=== PATIENT | male | born 1955 | race Caucasian/White ===

== ENCOUNTER → 2018-08-17 | Day surgery (SDC) | payer OTHER ==
[~2018-08-17] MED LIST: AMBIEN5 MG PO; BUPIVACAINE 0.25%/EPI 30ML SDV INJ ONE; CEFAZOLIN SOD 1 GM VIAL ONE; CENTRUM SILVER1 EAC3 PO; DEXAMETHASONE SOD PHOS INJ 4 MG/ML VIAL ONE; EPHEDRINE SULFATE INJ 50 MG/10 ML SYR ONE; FENTANYL CITRATE/PF 100MCG/2 ML INJ ONE; HEPARIN SOD (PORCINE) 5,000 UNIT/ML VIAL ONE; LIDOCAINE HCL 1% LOCAL INJ 20 ML VIAL ONE; LIDOCAINE HCL 2% LOCAL INJ 5 ML SDV VIAL INJ ONE; LOSARTAN POTASS25 MG PO; MIDAZOLAM HCL 2 MG/2 ML VIAL ONE; MORPHINE PO; NORCO 10-325 T1 EACH PO; ONDANSETRON HCL INJ 2MG/ML 2ML 2 MG/ML VIAL ONE; PROPOFOL IV EMULSION 10 MG/ML 20 ML VIAL ONE; SEVOFLURANE INHAL SOLN 250 ML PEN BTL ONE; SODIUM CHLORIDE 0.9% 500ML 500 ML ONE
[2018-08-17 09:59] LABS: BASOPHILS # (AUTO) 0.1 (0.0-0.1); EOSINOPHILS % 0.2 % (0.0-6.0); HEMATOCRIT 37.2 % (38.2-49.6); LYMPHOCYTES # (AUTO) 1.8 (1.0-3.2); LYMPHOCYTES % 17.6 % (18.0-39.1); MEAN CORPUSCULAR HGB CONC 32.3 g/dL (31-35); MEAN CORPUSCULAR VOLUME 86.7 fL (81-99); MONOCYTES # (AUTO) 0.8 (0.2-0.8); MONOCYTES % 7.9 % (4.4-11.3); NEUTROPHILS # (AUTO) 7.4 (2.1-6.9); NEUTROPHILS % 72.3 % (38.7-80.0); PLATELET COUNT 295 x10e3/uL (140-360); RED BLOOD COUNT 4.29 x10e6/uL (4.3-5.7); RED CELL DISTRIBUTION WIDTH 17.2 % (11.7-14.4)
[2018-08-17 10:15] LABS: ALBUMIN/GLOBULIN RATIO 1.1 (0.8-2.0); ANION GAP 16.9 mmol/L (8-16); CALCIUM 9.8 mg/dL (8.4-10.2); CREATININE, SERUM 1.53 mg/dL (0.72-1.25); POTASSIUM 3.9 mmol/L (3.5-5.1)
--- NOTE | 2018-08-17 10:47 | Diagnostic Imaging Report ---
EXAMINATION: CHEST 2 VIEWS INDICATION: Pre-operative. COMPARISON: None FINDINGS: TUBES and LINES: None. LUNGS: Lungs are well inflated. There is no evidence of pneumonia or pulmonary edema. There is a 5 mm nodular opacity overlying the left midlung. PLEURA: No pleural effusion or pneumothorax. HEART AND MEDIASTINUM: The cardiomediastinal silhouette is unremarkable. BONES AND SOFT TISSUES: No acute osseous abnormality. UPPER ABDOMEN: No free air under the diaphragm. IMPRESSION: No acute radiographic abnormality. Possible 5 mm pulmonary nodule in the left midlung. Recommend follow-up nonurgent chest CT for further evaluation. Signed by: Dr. Parish Rod MD on 08/17/2018 10:44 AM
[2018-08-17 13:45] VITALS: BP 121/86
--- NOTE | 2018-08-17 20:33 | Operative Report ---
DATE OF PROCEDURE: 08/17/2018 SURGEON: Dinesh Fagan MD PREOPERATIVE DIAGNOSIS: Prostate cancer, needing IV access for chemotherapy. POSTOPERATIVE DIAGNOSIS: Prostate cancer, needing IV access for chemotherapy. OPERATION PERFORMED: Placement of left subclavian venous access port under C-arm guidance. ANESTHESIA: General. COMPLICATIONS: None. ESTIMATED BLOOD LOSS: Minimal. DESCRIPTION OF PROCEDURE: With the patient lying in bed in the Trendelenburg position under good general anesthesia, the left chest and neck were prepped with Betadine solution and draped in the usual manner. Standard left subclavian venipuncture was performed without any difficulty and a guidewire was advanced into central venous position. The tip of the guidewire was confirmed to be at the level of the superior vena cava with the C-arm and the left lung was fully expanded. A pocket was then created in the left anterior chest to accept the reservoir. The catheter was threaded to the subclavian position and cut to the appropriate length. The reservoir was then anchored to the anterior chest wall with interrupted sutures of 2-0 silk. The whole catheter and reservoir were then fully heparinized. The peel-away sheath was then placed over the guidewire. The guidewire was removed and the catheter was threaded through the peel-away sheath. The peel-away sheath was removed. There was good blood return, and the reservoir and catheter were fully heparinized. Using the C-arm, the tip of the catheter was confirmed to be at the level of the superior vena cava and the left lung was fully expanded. The wounds were then closed in layers. The subcutaneous tissue was approximated with 3-0 and 4-0 Vicryl, and the skin was closed with subcuticular 5-0 Vicryl. Benzoin Steri-Strips and dressings were applied. The sponge, lap, and needle count was correct. The patient tolerated the procedure well and returned to the recovery room in stable condition. Dinesh Fagan MD JLR/MODL /[id number]
== END | disposition home or self-care (01) ==
LOC: OR 08:28
PROVIDERS: ATTEND Surgery
DX: C61 Malignant neoplasm of prostate (principal); I10 Essential (primary) hypertension; Z88.6 Allergy status to analgesic agent; Z45.2 Encounter for adjustment and management of vascular access device
CPT/HCPCS: 36415; 36561; 71046; 77001; 80053; 85025; 93005; C1751; J0690; J1100; J1644; J2001; J2250; J2405; J2704; J7040

== ENCOUNTER 2018-08-31 14:45 | Inpatient (IN) | payer OTHER ==
[~2018-08-31] VITALS: Ht 182.9 cm; Wt 99.4 kg
[~2018-08-31 14:45] MED LIST changes: -BUPIVACAINE 0.25%/EPI 30ML SDV INJ ONE; -CEFAZOLIN SOD 1 GM VIAL ONE; -DEXAMETHASONE SOD PHOS INJ 4 MG/ML VIAL ONE; -EPHEDRINE SULFATE INJ 50 MG/10 ML SYR ONE; -FENTANYL CITRATE/PF 100MCG/2 ML INJ ONE; -HEPARIN SOD (PORCINE) 5,000 UNIT/ML VIAL ONE; -LIDOCAINE HCL 1% LOCAL INJ 20 ML VIAL ONE; -LIDOCAINE HCL 2% LOCAL INJ 5 ML SDV VIAL INJ ONE; -MIDAZOLAM HCL 2 MG/2 ML VIAL ONE; -ONDANSETRON HCL INJ 2MG/ML 2ML 2 MG/ML VIAL ONE; -PROPOFOL IV EMULSION 10 MG/ML 20 ML VIAL ONE; -SEVOFLURANE INHAL SOLN 250 ML PEN BTL ONE; -SODIUM CHLORIDE 0.9% 500ML 500 ML ONE
--- OUTSIDE RECORDS SUMMARY | 2018-08-31 14:48 | XMS REPORT ---
Author Author [facility] Address Unknown Phone Unavailable Care Team Providers Care Loading Unit Operator Seating Name Role Phone Sari VELIZ Unavailable Unavailable Problems This patient has no known problems. Allergies, Adverse Reactions, Alerts This patient has no known allergies or adverse reactions. Medications This patient has no known medications. Results Test Description Test Time Test Comments Text Results Atomic Results Result Comments CHEST 2 VIEWS 2018-08-17 10:40:00 [facility] [address] [address] Patient Name: GORDON STRINGER MR #: [id number] : 1955 Age/Sex: 63/M Req #: [id number] Adm Physician: Ordered by: MADDIE VELIZ MD Report #: [id number] Location: OR Room/Bed: Procedure: [id number] DX/CHEST 2 VIEWS Exam Date: 08/17/18 Exam Time: 1000 REPORT STATUS: Signed EXAMINATION: CHEST 2 VIEWS INDICATION: Pre-operativ e. COMPARISON: None FINDINGS: TUBES and LINES: None. LUNGS: Lungs are well inflated. There is no evidence of pneumonia or pulmonary edema. There is a 5 mm nodular opacity overlying the left midlung. PLEURA: No pleural effusion or pneumothorax. HEART AND MEDIASTINUM: The cardiomediastinal silhouette is unremarkable. BONES AND SOFT TISSUES: No acute osseous abnormality. UPPER ABDOMEN: No free air under the diaphragm. IMPRESSION: No acute radiographic abnormality. Possible 5 mm pulmonary nodule in the left midlung. Recommend follow-up nonurgent chest CT for further evaluation. Signed by: Dr. Rk Salas MD on 08/17/2018 10:44 AM Dictated By: RK SALAS MD 1044 Transcribed By: NINO on 08/17/18 1044 COPY TO: MADDIE VELIZ MD
[2018-08-31] MEDS ORDERED: SODIUM CHLORIDE 0.9% 1000ML 1,000 ML IV STA (15:40)
[2018-08-31] MEDS ORDERED: HYDROMORPHONE 1MG/1ML INJ IV STA (15:40)
[2018-08-31] MEDS ORDERED: HYDROMORPHONE 2MG/ML 2 MG/ML ML IV ONE (15:45)
--- NOTE | 2018-08-31 16:00 | NUR ---
RECEIVED REPORT FROM THEODORA SAUNDERS RN, PT IN ER 5. GOWNED AND PLACED ON MONITOR. PT C/O DIFFUSE ABDOMINAL PAIN. DULL.
--- NOTE | 2018-08-31 16:19 | Diagnostic Imaging Report ---
EXAM: CHEST SINGLE (PORTABLE), AP Portable DATE: 08/31/2018 Time stamp on exam: 3:52 PM INDICATION: Abdominal pain with vomiting COMPARISON: 08/17/2018 FINDINGS: LINES/TUBES: Left-sided chest port with its tip overlying the SVC is noted. LUNGS: No consolidations or edema. Bilateral upper lobe bullous changes. PLEURA: No effusions or pneumothorax. HEART AND MEDIASTINUM: Normal size and contour. BONES AND SOFT TISSUES: No acute findings. IMPRESSION: No acute thoracic abnormality. Signed by: Dr. Wes Martinez DO on 08/31/2018 4:16 PM
[2018-08-31 17:16] LABS: BASOPHILS % 0.9 % (0.0-1.0); EOSINOPHILS % 0.5 % (0.0-6.0); HEMATOCRIT 33.2 % (38.2-49.6); HEMOGLOBIN 10.6 g/dL (14.0-18.0); LYMPHOCYTES # (AUTO) 1.1 (1.0-3.2); LYMPHOCYTES % 25.1 % (18.0-39.1); MEAN CORPUSCULAR HEMOGLOBIN 27.5 pg (28-32); MEAN CORPUSCULAR HGB CONC 31.9 g/dL (31-35); MONOCYTES # (AUTO) 0.2 (0.2-0.8); MONOCYTES % 3.7 % (4.4-11.3); PLATELET COUNT 237 x10e3/uL (140-360); RED BLOOD COUNT 3.86 x10e6/uL (4.3-5.7); RED CELL DISTRIBUTION WIDTH 15.4 % (11.7-14.4)
[2018-08-31 17:33] LABS: ALBUMIN 3.6 g/dL (3.5-5.0); ANION GAP 18.2 mmol/L (8-16); CALCIUM 9.5 mg/dL (8.4-10.2); CREATININE, SERUM 1.43 mg/dL (0.72-1.25); POTASSIUM 4.2 mmol/L (3.5-5.1)
[2018-08-31 17:39] LABS: CREATINE KINASE MB 0.3 ng/mL (0-5.0)
--- NOTE | 2018-08-31 18:38 | Diagnostic Imaging Report ---
EXAM: CT Abdomen and Pelvis WITH contrast INDICATION: Mid abdominal pain. Vomiting. ^abd pain. Tumors in the spine. Prostate cancer. COMPARISON: None. TECHNIQUE: Abdomen and pelvis were scanned utilizing a multidetector helical scanner from the lung base to the pubic symphysis after administration of IV contrast. Coronal and sagittal reformations were obtained. Routine protocol was performed. Scan was performed when during portal venous phase. IV CONTRAST: 150 mL of Omnipaque 300 ORAL CONTRAST: Water COMPLICATIONS: None RADIATION DOSE: Total DLP: 605.76 mGy*cm Estimated effective dose: (DLP x 0.015 x size factor) mSv CTDIvol has been reviewed. It is below the limits set by the Radiation Protocol Committee (RPC). Dose modulation, iterative reconstruction, and/or weight based adjustment of the mA/kV was utilized to reduce the radiation dose to as low as reasonably achievable. FINDINGS: LINES and TUBES: None. LOWER THORAX: There is bibasilar atelectasis. HEPATOBILIARY: The liver is diffuse hypodense compared to the spleen, consistent with diffuse hepatic diffuse hepatic steatosis. Multiple subcentimeters hypodensities throughout the entire liver. 1.2 cm simple appearing cyst in segment 2 of the liver (series 2, image 20). 1.0 cm ill-defined indeterminate hypodensity in segment 5 of the liver (image 30). No biliary ductal dilation. GALLBLADDER: No radio-opaque stones or sludge. No wall thickening. SPLEEN: No splenomegaly. PANCREAS: No focal masses or ductal dilatation. ADRENALS: No adrenal nodules KIDNEYS/URETERS: Delayed enhancement of the left kidney. Left hydronephrosis with delayed left renal function compared to the right kidney secondary to obstruction by lymphoid tissue. No cystic or solid mass lesions. No stones. GI TRACT: No abnormal distention, wall thickening, or evidence of bowel obstruction. Appendix is normal. PELVIC ORGANS/BLADDER: Prostate measures 4.6 cm in transverse dimension. Mild lobulation of the right aspect. No periprostatic extension of tumor. LYMPH NODES: * Extensive retroperitoneal mesenteric lymphadenopathy, more mesenteric lymphadenopathy. * Conglomeration of mesenteric lymphadenopathy measures 7.0 x 11.3 cm (series 2, image 40). * Multiple prosper hepatis lymph nodes measure up to 2.1 x 4.6 cm (image 33). * Multiple other retroperitoneal lymph nodes. 1.8 cm aortocaval lymph node (image 43). * 1.2 cm right common iliac lymph node (image 72). * 0.6 cm left anterior and 0.8 cm posterior perirectal lymph nodes (image 94). Ill-defined lymph node in the left retroperitoneum extending into the left renal sinus fat causing obstruction of the left renal pelvis. VESSELS: Unremarkable. PERITONEUM / RETROPERITONEUM: No free air or fluid. BONES: Extensive blastic metastases especially involving S1 and S2. SOFT TISSUES: Unremarkable. IMPRESSION: 1. Extensive retroperitoneal and mesenteric lymphadenopathy. 2. Lymphadenopathy in the left retroperitoneum extending to the left renal sinus fat causing obstruction and left hydronephrosis. 3. Multiple indeterminate liver lesions. Several of which are benign. Signed by: Dr. Sonny Kovacs M.D. on 08/31/2018 6:35 PM
[2018-08-31 18:51] LABS: BILIRUBIN,URINE NEGATIVE (NEGATIVE); CLARITY,URINE CLEAR (CLEAR); COLOR,URINE YELLOW (YELLOW); KETONES,URINE NEGATIVE (NEGATIVE); LEUKOCYTE ESTERASE ,URINE NEGATIVE (NEGATIVE); NITRITE,URINE NEGATIVE (NEGATIVE); PROTEIN,URINE DIPSTICK NEGATIVE (NEGATIVE); URINE UROBILINOGEN 0.2 mg/dL (0.2 - 1)
[2018-08-31] MEDS ORDERED: HYDROMORPHONE 1MG/1ML INJ IV PRN (19:00)
--- NOTE | 2018-08-31 19:00 | NUR ---
PT STATES PAIN BACK UP TO WHERE IT STARTED. ABOUT A 5. SAYS AFTER THE DILAUDID PAIN WENT DOWN TO ABOUT A 3 FOR A LITTLE WHILE BUT HAS SINCE CLIMBED BACK UP
[2018-08-31 19:13] LABS: BACTERIA,URINE MODERATE /HPF; EPITHELIAL CELLS,URINE FEW /LPF; WBC,URINE (MAN) 0-5 /HPF (0-5)
--- NOTE | 2018-08-31 19:51 | NUR ---
recieved report from hermilo escobar
--- NOTE | 2018-08-31 19:52 | NUR ---
patient reports no problems urinating
[2018-08-31] MEDS ORDERED: IOPAMIDOL 370 MG/ML 200 ML INFUS..BTL INJ ONE (20:10)
[2018-08-31] MEDS ORDERED: SODIUM CHLORIDE 0.9% 50ML 50 ML ONE (20:10)
[2018-08-31 21:07] VITALS: BP 147/92
[2018-08-31 21:16] VITALS: BP 147/92
[2018-08-31 21:27] VITALS: BP 147/92
[2018-08-31] MEDS: HYDROMORPHONE 2MG/ML 2 MG/ML ML IV PRN (21:43)
[2018-09-01] VITALS (8 sets, daily range): BP systolic 126–132; BP diastolic 76–91
[2018-09-01] MEDS: HYDROMORPHONE 2MG/ML 2 MG/ML ML IV PRN ×4 (03:53→18:43)
[2018-09-01 05:34] LABS: BASOPHILS % 0.9 % (0.0-1.0); EOSINOPHILS % 0.3 % (0.0-6.0); HEMATOCRIT 29.6 % (38.2-49.6); HEMOGLOBIN 9.6 g/dL (14.0-18.0); LYMPHOCYTES % 31.5 % (18.0-39.1); MEAN CORPUSCULAR HEMOGLOBIN 27.8 pg (28-32); MEAN CORPUSCULAR HGB CONC 32.4 g/dL (31-35); MEAN CORPUSCULAR VOLUME 85.8 fL (81-99); MONOCYTES # (AUTO) 0.2 (0.2-0.8); MONOCYTES % 5.2 % (4.4-11.3); NEUTROPHILS % 60.9 % (38.7-80.0); PLATELET COUNT 179 x10e3/uL (140-360); RED BLOOD COUNT 3.45 x10e6/uL (4.3-5.7); RED CELL DISTRIBUTION WIDTH 15.3 % (11.7-14.4)
[2018-09-01 05:53] LABS: ALBUMIN 3.1 g/dL (3.5-5.0); CALCIUM 8.7 mg/dL (8.4-10.2); CREATININE, SERUM 1.27 mg/dL (0.72-1.25)
[2018-09-01] MEDS ORDERED: FENTANYL 75MCG/HR PATCH TD SCH (09:45)
--- NOTE | 2018-09-01 12:14 | NUR ---
Notified Dr. Richy Johnson, IR consult for retroperitoneal lymphnoid biopsy to be done 09/02/18 received orders for NPO after MN, PT/INR, PTT, in am.
--- NOTE | 2018-09-01 14:27 | NUR ---
Notified Dr. Mandel that I made IR aware about patient's urological procedure scheduled for 12:[address] Mandel. Asked IR what time was patient's retroperitoneal lymphnode biopsy scheduled for spoke with Franchesca in IR and she informed me it was scheduled for 08:30 in the morning, and pathology for 09:00.
[2018-09-01] MEDS: MORPHINE SULFATE 30 MG TAB ER PO SCH (15:02)
--- NOTE | 2018-09-01 15:59 | NUR ---
Removed Fentanyl 75mcg patch from patient at his request reported patch not relieving his pain. Became nauseated vomited in bathroom.
--- NOTE | 2018-09-01 16:06 | NUR ---
Fentanyl 75mcg wasted nurse Anahi witnessed waste.
[2018-09-01] MEDS: ONDANSETRON HCL INJ 2MG/ML 2ML 2 MG/ML VIAL IV PRN (16:08)
--- NOTE | 2018-09-01 18:45 | NUR ---
Received bedside report from day shift RN. Patient is not in distress except for abdominal pain which will receiving PO pain medication. Patient understood to be NPO by midnight for two procedures. Bed set low, call light within reach, wheels lock and side rails up x2.
[2018-09-02] VITALS (7 sets, daily range): BP systolic 117–124; BP diastolic 76–85
[2018-09-02] MEDS: MORPHINE SULFATE 30 MG TAB ER PO SCH ×2 (02:05→17:59)
[2018-09-02] MEDS: ONDANSETRON HCL INJ 2MG/ML 2ML 2 MG/ML VIAL IV PRN (02:06)
--- NOTE | 2018-09-02 02:06 | NUR ---
The patient requiest the MsContin to help manage the pain throughout the evening till the procedure in the morning. The patient requested Zofran to help prevent the nausea. Both medications administered.
--- NOTE | 2018-09-02 06:27 | NUR ---
Patient took a shower to prepare for today's procedures. Patient report mild pain and did not ask for pain medication.
[2018-09-02 06:48] LABS: INR 1.02; PARTIAL THROMBOPLASTIN TIME 34.2 seconds (23.8-35.5); PROTHROMBIN TIME 13.9 seconds (11.9-14.5)
--- NOTE | 2018-09-02 07:30 | NUR ---
RECEIVED PATIENT AWAKE RESTING IN BED NO SIGNS OF DISTRESS. BED LOW, WHEELS LOCKED, SIDE RAILS X2. CALL LIGHT IN REACH WILL CONTINUE TO MONITOR.
[2018-09-02] MEDS ORDERED: MIDAZOLAM HCL 2 MG/2 ML VIAL ONE ×2 (08:52→19:35)
[2018-09-02] MEDS ORDERED: FENTANYL CITRATE/PF 100MCG/2 ML INJ ONE ×3 (08:53→19:35)
[2018-09-02] MEDS ORDERED: LIDOCAINE HCL 1% LOCAL INJ 20 ML VIAL ONE (09:29)
[2018-09-02] MEDS ORDERED: GELATIN SPONGE 12-7MM ONE (09:29)
--- NOTE | 2018-09-02 10:52 | NUR ---
PATIENT BACK FROM RADIOLOGY AT THIS TIME. RIGHT BACK PUNCTURE SITE DRESSING CLEAN, DRY, AND INTACT. NO PAIN VOICED AT THIS TIME. CALL LIGHT IN REACH. WILL CONTINUE TO MONITOR.
--- NOTE | 2018-09-02 11:19 | Diagnostic Imaging Report ---
EXAM: CT guided retroperitoneal lymph node biopsy. DATE: 09/02/2018 Time stamp on Exam: 9:10 AM INDICATION: History of prostate cancer; now presents with extensive mesenteric and retroperitoneal lymphadenopathy. COMPARISON: 08/31/2018 TECHNIQUE: The abdomen and pelvis were scanned using a multidetector helical scanner. Coronal and sagittal reformations were obtained. Routine protocol performed. IV Contrast: None Oral Contrast: None Radiation Dose: Total DLP 699.36 mGy*cm Estimated effective dose: DLP x 0.015 x size factor CONSCIOUS SEDATION: The patient did receive IV conscious sedation with 1 mg of Versed and 50 mcg of fentanyl. He was continuously monitored by the dedicated nurse in attendance. Sedation time was 1 hour and 30 minutes. FINDINGS: Initial scanning in the supine position to evaluate the mesenteric lymphadenopathy was performed. There were some loops of bowel present as well as the mesenteric lymphadenopathy. It was elected to perform the biopsy in the prone position targeting the retroperitoneal lymphadenopathy adjacent to the left kidney. Local anesthesia was obtained with 1% Xylocaine. CT guidance for placement of a 19-gauge guiding needle into the retroperitoneal lymphadenopathy noted medial to the left kidney was accomplished. Through the guiding needle 3 FNA's were performed utilizing 20-gauge Chiba needles. A total of 6 core biopsies were also performed utilizing 1 cm and 2 cm throw 20-gauge core biopsy guns. Specimens were evaluated by the Pathologist in attendance who deemed the specimens adequate. Postbiopsy imaging through the kidneys shows no evidence of hemorrhage. IMPRESSION: CT-guided FNA and core biopsy of left retroperitoneal lymphadenopathy. Signed by: Dr. Wes Martinez DO on 09/02/2018 11:16 AM
[2018-09-02] MEDS ORDERED: B&O 60MG R/S 60 MG SUPP PR ONE (12:32)
[2018-09-02] MEDS ORDERED: IOPAMIDOL 610MG/1ML 300 MG/ML VIAL IV ONE ×2 (12:32→13:20)
[2018-09-02] MEDS ORDERED: MEPERIDINE HCL INJ 25 MG/ML VIAL ONE ×3 (14:08→14:24)
[2018-09-02] MEDS ORDERED: HYDROMORPHONE 2MG/ML 2 MG/ML ML ONE ×2 (15:38→15:56)
--- NOTE | 2018-09-02 15:41 | Diagnostic Imaging Report ---
Exam: Retrograde ureterogram. History: Patient with a history of prostate cancer and retroperitoneal adenopathy causing left hydronephrosis. Comparison: CT scan of the abdomen and pelvis dated 08/31/2018 Findings: Multiple images were obtained and scored to the medical record. Injection of both ureters has been performed. Right side appears normal. Moderate left hydronephrosis is present. A double-J ureteral stent was placed on the left after ureteral dilatation. There is a proximal left irregular ureteral stricture. Fluoroscopy time: 58 seconds Cumulative area dose product 693.68 cGycm2 Impression: 1. Moderate left hydronephrosis and proximal ureteral stricture. 2. Left double-J ureteral stent placed. 3. Please see the full report provided by the performing Physician. Signed by: Dr. Wes Martinez DO on 09/02/2018 3:37 PM
[2018-09-02] MEDS ORDERED: NALOXONE HCL INJ 0.4 MG/ML AMP IV PRN ×2 (15:45→16:00)
[2018-09-02] MEDS ORDERED: HYDROMORPHONE 0.2MG/ML-SOD CHL 30ML PCA SYRINGE IV PRN ×2 (15:45→16:00)
--- NOTE | 2018-09-02 15:53 | Diagnostic Imaging Report ---
Abdomen, 2 views dated 09/02/2016 at 3:29 PM. History: <Abdominal pain>. Findings: There is a left double-J ureteral stent in appropriate location. No free peritoneal air is identified. Contrast residual within the left kidney is noted. Minimal amount of subcapsular contrast in the left upper pole lateral cortical margin is noted. The intestinal gas pattern is nonobstructive. There no masses or abnormal calcifications. Sclerotic densities are seen in the left sacrum near the SI joint, midline sacrum and the right iliac wing compatible with osteoblastic metastasis. IMPRESSION: 1. Double-J left ureteral stent appropriate in position. 2. Minimal subcapsular contrast in the upper lateral pole of the left kidney. 3. Diffuse osteoblastic metastasis. Signed by: Dr. Wes Martinez DO on 09/02/2018 3:49 PM
--- NOTE | 2018-09-02 15:57 | Operative Report ---
DATE OF PROCEDURE: 09/02/2018 SURGEON: Paolo Mandel MD PREOPERATIVE DIAGNOSIS: Retroperitoneal mass with left hydronephrosis. 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 PROCEDURES: Cystoscopy, retrograde pyelograms, dilatation of ureteral stenosis and placement of left double-J. ANESTHESIOLOGIST: Staff. ANESTHESIA: General. FINDINGS: Urethral meatal stenosis. Small prostate. Bladder, no trabeculation. Ureteral orifices, normal position bilaterally. High-riding median bar noted, but the prostate was small, nonobstructed. PROCEDURE IN DETAIL: With the patient under satisfactory general anesthesia, the patient was placed in supine position on the operating table, legs were placed in stirrup, genitalia was then prepped with Betadine soap and solution and draped in the usual manner. A time-out was obtained and all agreed with the patient on the table and procedure as outlined. First order of business was to dilate the urethral meatus since it was tight. This was done to size a 24 Bassam sound. After that, the cystoscope was passed per urethra into the bladder. Inspection of the prostatic urethra showed a short prostate fixed with a high-riding median bar. Cystoscopy was done with a 12 and 70 degree angle lens. There was no evidence of trabeculation in the bladder. Ureteral orifices were in the normal position. At this point, using a #8 cone-tip ureteral catheter, contrast media was injected retrograde up the right and the left side. On the right side, the ureter appeared to be normal as well as a calyx and infundibulum and renal pelvis. On the left side, the ureter appeared to be narrow, it appeared also to have ureteritis cystica, the renal pelvis was dilated as well as the infundibulum and calyx is on the left side suggesting external compression. The extra stiff guidewire was then introduced all the way up to the kidney without any difficulty. Difficulty came in placing the double-J, which would not advance. The double-J was then removed and over the guidewire, the open-ended catheter was placed in. Again, difficulty was noted accessing the renal pelvis. There was approximately an 8 mm section of proximal ureter that was very tight. This was from the external compression caused by lymphadenopathy seen on CT scan, which was biopsied earlier today. At this point, a balloon dilator was introduced. Difficulty was found advancing the balloon with the tip in the inside the renal pelvis. This was a 10 cm balloon. Inflation was down to 14 atmospheres pressure and then up to 16 atmospheres pressure. At this point, the balloon was removed and a 6-Welsh [employer] double-J was introduced with some difficulty up into renal pelvis. Coil in the renal pelvis. Then, the guidewire was removed and it was coiled in the bladder. Contrast media was injected retrograde, no extravasation was identified. At this point, the sleeve was used to disengage the pusher and leave the double-J in place. Cystoscopy was performed. Bleeding was noted from the right side of the bladder neck. Since the bladder neck was fixed and hard, this area was fulgurated using the Bugbee electrode. At that point looking inside the bladder, it was noted that the double-J was in appropriate position, but blood was noted around the urethral meatus. Therefore, the patient will have blood in the ureter. If this coagulates, the patient will have pain as if he had a kidney stone for the next 3-4 days until the clot will dissolve. At this point, B and O suppository was placed in the rectum. The patient was taken to recovery room in satisfactory condition. An 18-Welsh Quach catheter was passed per urethra and left indwelling. MD ROOPA Levine/MODL /[id number]
[2018-09-02] MEDS ORDERED: METOCLOPRAMIDE HCL 10 MG/2ML VIAL ONE (16:11)
[2018-09-02] MEDS ORDERED: ONDANSETRON HCL INJ 2MG/ML 2ML 2 MG/ML VIAL ONE ×2 (16:11→18:36)
[2018-09-02] MEDS ORDERED: PROMETHAZINE HCL (IM) 25 MG/ML VIAL ONE (16:18)
--- NOTE | 2018-09-02 16:34 | Diagnostic Imaging Report ---
Bone Scan, delayed phase INDICATION: Prostate cancer diagnosed in 2016 COMPARISON: No prior bone scan; CT abdomen/pelvis 08/31/2018 REPORT: Approximately 2 hours following intravenous administration of 26 mCi of Tc-99m MDP, delayed total body images in the anterior and posterior projections and selected spot images were obtained. Discrete foci of increased tracer activity are seen in the base of the left skull posteriorly, T8, T9, L2, multiple ribs anteriorly and posteriorly, manubrium on the right, sacrum bilaterally, clarissa bilaterally, right humeral neck and head, left humeral shaft proximally and right femoral neck. Otherwise, distribution of tracer activity is unremarkable throughout the skeletal system. No abnormal accumulation of tracer is seen in the soft tissues or urinary tract. 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 Signed by: Dr. Savannah Corado M.D. on 09/02/2018 4:30 PM
[2018-09-02] MEDS ORDERED: SODIUM CHLORIDE 0.9% 500ML 500 ML ONE (18:10)
[2018-09-02] MEDS ORDERED: PROPOFOL IV EMULSION 10 MG/ML 20 ML VIAL ONE (18:36)
[2018-09-02] MEDS ORDERED: SEVOFLURANE INHAL SOLN 250 ML PEN BTL ONE (18:36)
[2018-09-02] MEDS ORDERED: LIDOCAINE HCL 2% LOCAL INJ 5 ML SDV VIAL INJ ONE (18:36)
[2018-09-02] MEDS ORDERED: DEXAMETHASONE SOD PHOS INJ 4 MG/ML VIAL ONE (18:36)
[2018-09-03] VITALS (8 sets, daily range): BP systolic 117–134; BP diastolic 75–94
[2018-09-03] MEDS: MORPHINE SULFATE 30 MG TAB ER PO SCH ×2 (05:19→17:26)
--- NOTE | 2018-09-03 07:36 | NUR ---
RECEIVED PATIENT AWAKE RESTING IN BED NO SIGNS OF DISTRESS AT THIS TIME. BED LOW, WHEELS LOCKED, SIDE RAILS X2. CALL LIGHT IN REACH WILL CONTINUE TO MONITOR PATIENT.
[2018-09-03] MEDS: PREDNISONE 20 MG TAB PO SCH (07:55)
--- NOTE | 2018-09-03 09:15 | NUR ---
PATIENT A/O X3, EVEN RESPIRATIONS ON RA. LUNG SOUNDS CLEAR TO AUSCULTATION. BOWEL SOUNDS ACTIVE, SKIN INTACT, NO EDEMA. ROSSI IN PLACE DRAINING DARK BLOODY URINE. PATIENT AMBULATES WITH STANDBY ASSIST. VITAL SIGNS STABLE. PLAN COORDINATOR DILAUDID IN PLACE. CALL LIGHT IN REACH. WILL CONTINUE TO MONITOR PATIENT.
--- NOTE | 2018-09-03 10:25 | NUR ---
MD. Amaury SIMMONS ROUNDED. ORDERS TO DC ROSSI AND LOSS PREVENTION AGENT TOMORROW MORNING GIVEN(09/04/18) ORDERS NOW ON COMP.
--- NOTE | 2018-09-03 16:22 | NUR ---
Nutrition Intervention Note RD Recommendation(s) for Physician: -Continue diet as ordered -The patient meets criteria for MODERATE protein-calorie malnutrition. Plan of Care: RD following, monitoring for tolerance and adequacy Nutrition reason for involvement: Nutrition Risk Trigger RD Assessment 09/03 63yo M, who was admitted for hydronephrosis. Visited pt in the room. Pt reported good appetite with 100% recorded meal intake. No complains of nausea or vomiting. Pt denied any chewing or swallowing difficulty. Pt has been undergoing chemotherapy for prostate cancer since 2016. He has lost ~25lbs in the last 6 months from the treatment. No muscle/ fat loss observed upon NFPA. Pt is not interested in any oral nutrition supplements or diet education at this time. Current diet is adequate and appropriate. Discussed menu options with pt. Will continue to monitor and follow. Principal Problems/Diagnoses: hydronephrosis PMH: prostate cancer GI: abdomen soft, non-tender, round, flatus present Skin: no pressure wound noted Labs: reviewed Meds: prednisone Ht: 72in Wt: 217.02lb BMI: 29.4kg/m2 IBW: 196lbs Malnutrition Evaluation (09/03/2018) The patient meets criteria for MODERATE protein-calorie malnutrition. Energy intake: <75% of estimated energy requirements for >3 months Weight loss: >10% in 6 months (Chronic) Fat loss: None Muscle loss: None Supporting Evidence: Fluid accumulation: None Functional Status: no changes Nutrition Prescription (Diet Order): regular diet Estimated Nutritional Needs: Calories: 2450 2940kcal(25-30kcal/kg/d) Weight used: CBW Protein: 98 147g (1-1.5g/kg/d) Weight used: CBW Diet Adequacy: Meeting calorie needs, Meeting protein needs Diet Education Needs Assessment: Diet education not indicated; patient on regular diet. Nutrition Care Level: moderate Nutrition Diagnosis: Moderate malnutrition related to inadequate oral intake as evidenced by <75% of estimated energy requirements for >3 months and >10% weight loss in 6 months. Goal: Patient will meet 75-100% of estimated needs by follow up Progress: Goal Met Interventions: General healthful diet Monitoring/Evaluation: Total energy intake, Total protein intake, Diet, Weight change Signed: Sanam Simpson, MS, RD, LD
[2018-09-03] MEDS ORDERED: SODIUM CHLORIDE 0.9% 500ML 500 ML ONE (16:57)
--- NOTE | 2018-09-03 17:30 | NUR ---
RIGHT AC IV OCCLUDED. REMOVED IV, CATHETER TIP INTACT AND PRESSURE DRESSING APPLIED. NEW IV STARTED TO RIGHT FA 20 GAUGE.
[2018-09-04] VITALS (8 sets, daily range): BP systolic 113–121; BP diastolic 73–79
--- NOTE | 2018-09-04 05:48 | NUR ---
Bloody urine noted. Dr. Mandel notified and ordered not to removed Quach Catheter at this time.
--- NOTE | 2018-09-04 05:49 | NUR ---
Dr. Mandel ordered not to d/c CONSUMER BANKER at this time.
[2018-09-04] MEDS: MORPHINE SULFATE 30 MG TAB ER PO SCH ×2 (06:00→17:10)
--- NOTE | 2018-09-04 06:50 | NUR ---
Dr. Mandel seen the patient, ordered to removed Quach catheter and d/c WHEEL BORER.
--- NOTE | 2018-09-04 07:00 | NUR ---
bedside shift report received from night rn, pt in stable condition, ivf infusing to r fa 20g no ss of infiltration noted, rn recruitment pump on demand, denies pain at this time, hoffman to bsd with jason urine noted, no clots visible, call light in reach will continue to monitor
--- NOTE | 2018-09-04 07:06 | Progress Note ---
DATE: 09/04/2018 Today, the patient is doing well. Urine color migue. The little clots from the kidney and the ureter are now being dissolved by the urine, therefore, the urine is migue color, but there are no clots. The patient's pain has been under control. We will also remove the EDUCATION REPORTER pump today. Presently, the recommendations are that the patient can go home depending on Dr. Begum. The patient can be followed in the office if necessary. He is a known cancer patient with metastases and Dr. Begum will form a new treatment schedule for him once the pathology report is known from his retroperitoneal biopsy mass. MD ROOPA Levine/MODL /[id number]
--- NOTE | 2018-09-04 08:40 | NUR ---
hoffman dc'd as per ordered,bulb deflated hoffman removed, tip intact, 300cc of yellow urine emptied from bag, pt dtv [phone]
[2018-09-04] MEDS: PREDNISONE 20 MG TAB PO SCH (08:43)
--- NOTE | 2018-09-04 09:00 | NUR ---
pt voided bloody urine, no clots noted
[2018-09-04] MEDS ORDERED: HYDROCODONE/APAP 10MG-325MG TAB PO PRN (13:30)
--- NOTE | 2018-09-04 19:00 | NUR ---
RECEIVED PATIENT IN BEDSIDE REPORT. PATIENT RESTING IN BED AT THIS TIME. PAIN REPORTED 2/10. NO S&S OF DISTRESS NOTED. ROSSI DRAINING WELL. BED LOCKED IN LOWEST POSITION, SIDE RAILS UPX2, CALL LIGHT IN REACH.
[2018-09-05] VITALS (9 sets, daily range): BP systolic 117–144; BP diastolic 72–88
[2018-09-05] MEDS: MORPHINE SULFATE 30 MG TAB ER PO SCH ×2 (05:59→18:17)
--- NOTE | 2018-09-05 07:00 | NUR ---
BEDSIDE SHIFT REPORT RECEIVED FROM NIGHT NURSE, PT IN STABLE CONDITION, DARK RED URINE NOTED, WITH SMALL CLOT IN URINAL, R FA 20G NO SS OF INFILTRATION NOTED DENIES PAIN AT THIS TIME, CALL LIGHT IN REACH WILL CONTINUE OT MONITOR
[2018-09-05] MEDS: PREDNISONE 20 MG TAB PO SCH (08:47)
--- NOTE | 2018-09-05 08:59 | NUR ---
PAGED DR SIMMONS RE: PTS CONCERNS OF URINE COLOR AWAITING CALL BACK
--- NOTE | 2018-09-05 10:52 | Progress Note ---
DATE: 09/05/2018 Today, the patient is afebrile. Vital signs are stable, but he is depressed. He has had some pain on the left flank from the indwelling double-J and the clot form at the time of the procedure is dissolving. The pain is less, but still there is some present. His CBC stable as well as the chemistry. I have spoken with the patient concerning the possibility that this may be a progression of his prostatic cancer, if it is so the prognosis is very poor. The patient understands that. We will know the pathology report next week. Dr. Pettitishi to continue the care of the patient as best as possible given the circumstances now that his disease progression. The patient prognosis is very poor. MD RABIA LevineG/MODL /[id number]
--- NOTE | 2018-09-05 19:00 | NUR ---
RECEIVED PATIENT IN BEDSIDE REPORT. PATIENT REPORTS PAIN IS LESS THAN 2 AT THIS TIME. REMINDED PATIENT TO DRINK WATER AND AMBULATE. BED LOCKED IN LOWEST POSITION, SIDE RAILS UPX2, CALL LIGHT IN REACH.
[2018-09-06] VITALS (7 sets, daily range): BP systolic 115–134; BP diastolic 73–98
[2018-09-06] MEDS: HYDROMORPHONE HCL 2 MG TAB PO PRN ×2 (03:01→13:55)
--- NOTE | 2018-09-06 03:42 | NUR ---
REASSESSED PATIENT'S PAIN AND TOLERANCE OF NEW DILAUDID PO MEDICATION. PATIENT STATED PAIN WENT DOWN TO 2/10. STATED HE FELT A LITTLE STOMACH UPSET, BUT NOT ENOUGH TO TAKE ANY ANTI-NAUSEA MEDICATION, WILL NOTIFY STAFF IF IT GETS WORSE. PATIENT IS PLAYING A GAME ON HIS TABLET SO HE CAN PAY ATTENTION TO HOW HIS BODY REACTS TO DILAUDID AND DOES NOT NOTE ANY ADVERSE EFFECTS, BEYOND THE NAUSEA. WILL CONTINUE TO MONITOR.
[2018-09-06] MEDS: ONDANSETRON HCL 4 MG ORAL DISINTEGRATING TAB PO PRN ×2 (05:59→13:55)
[2018-09-06] MEDS: MORPHINE SULFATE 30 MG TAB ER PO SCH ×2 (05:59→16:29)
[2018-09-06] MEDS: PREDNISONE 20 MG TAB PO SCH (07:58)
[2018-09-06] MEDS: LACTULOSE SYRUP 20 GM/30 ML UDC PO SCH (07:58)
--- NOTE | 2018-09-06 18:51 | NUR ---
Resting in bed, side rails upx2, call light within reach. AAOX3 to time, person,place. Respirations even and unlabored. no s/s of acute distress noted.
--- NOTE | 2018-09-06 18:54 | NUR ---
Report given to oncoming nurse of patient's status.
--- NOTE | 2018-09-06 19:26 | NUR ---
Bedside report and walking rounds complete. Pt resting in bed and in no apparent distress. Room air, no tele. All safety measures ensured and pt call rivera near. Pt encouraged to use call rivera for assistance.
[2018-09-07 00:09] VITALS: BP 134/82
[2018-09-07] MEDS: HYDROMORPHONE HCL 2 MG TAB PO PRN (02:24)
[2018-09-07] MEDS: ONDANSETRON HCL 4 MG ORAL DISINTEGRATING TAB PO PRN (02:24)
[2018-09-07 04:58] VITALS: BP 122/82
[2018-09-07] MEDS ORDERED: MORPHINE SULFATE 30 MG TAB ER PO SCH (06:18)
--- NOTE | 2018-09-07 07:12 | NUR ---
received pt lying in bed with light on, Resp even and unlabored. denies pain at this time. call light within reach. be din low and locked position.
--- NOTE | 2018-09-07 07:30 | NUR ---
Bedside report and walking rounds complete.
[2018-09-07 08:12] VITALS: BP 124/84
[2018-09-07] MEDS: PREDNISONE 20 MG TAB PO SCH (08:19)
[2018-09-07] MEDS: LACTULOSE SYRUP 20 GM/30 ML UDC PO SCH (08:19)
[2018-09-07 09:04] VITALS: BP 124/84
[2018-09-07] MEDS ORDERED: DILAUDID2 MG PO (09:41)
[2018-09-07] MEDS ORDERED: LACTULOSE20 GM/30 M PO (09:42)
[2018-09-07] MEDS ORDERED: PREDNISONE20 MG PO (09:42)
--- NOTE | 2018-09-07 10:25 | NUR ---
PIV REMOVED WITH TIP INTACT. PATIENT D/C VIA WHEELCHAIR, ESCORTED TO FRONT LOBBY DOOR WHERE EX-MOTHER IN LAW AWAITED IN PRIVATE AUTO. ALL PERSONAL BELONGINGS, RX AND D/C INSTRUCTIONS IN HAND AT TIME OF D/C.
--- NOTE | 2018-09-07 15:01 | History and Physical ---
HISTORY OF PRESENT ILLNESS: Thomas Goodson is a 63-year-old white male, who presented with abdominal pain, subsequently admitted for further evaluation and treatment. HISTORY OF PAST ILLNESS: History of cancer of the prostate, which I have treated for approximately 6 years. SOCIAL HISTORY: Noncontributory. FAMILY HISTORY: Noncontributory. ALLERGIES: REPORTED NONE. MEDICATIONS: At this time consist of, 1. Ondansetron. 2. Hydromorphone. 3. MS Contin. REVIEW OF SYSTEMS: HEENT: Normal. CARDIAC: Normal. RESPIRATORY: Normal. GI: Normal except for abdominal pain now. : Cancer of the prostate, stage D2 with massive bony metastases, treated with Lupron Depot, later with Zytiga, later with systemic chemotherapy consisting of Taxotere, lateral with second-line chemotherapy, now getting third-line chemotherapy consisting of mitoxantrone and prednisone. MUSCULOSKELETAL: Massive metastases to the bone. PHYSICAL EXAMINATION: GENERAL: A moderately built male, in distress with pain. NECK: No palpable adenopathy. HEART: Within normal limits. LUNGS: Clear. ABDOMEN: Obese. RECTAL: Deferred. CENTRAL NERVOUS SYSTEM: Essentially normal. EXTREMITIES: Essentially normal. IMPRESSION: Metastatic cancer of the prostate. PLAN: To have a thorough workup for the abdominal pain, analgesics, Urology consultation. MD KENZIE Shah/NAVEENL /[id number]
--- NOTE | 2018-09-08 05:56 | Discharge Summary ---
HOSPITAL COURSE: Mr. Goodson is a 63-year-old white male, who presented with abdominal pain. On admission, hemoglobin 9.6, hematocrit 29.6, white count of 2300, and platelets 179,000. BUN 14, creatinine 1.27, sodium 139, potassium 4.0, chloride 74, CO2 of 24, bilirubin 0.5, SGOT 26, SGPT 15, and alkaline phosphatase 97. The patient had a CAT scan of the abdomen which showed massive retroperitoneal adenopathy. There was also left hydronephrosis. Subsequently, the patient had a biopsy of one of the regional lymph nodes. The lymph nodes were up to the prosper hepaticus. Consultation with the urologist, Dr. Paolo Mandel was obtained. The patient had stenting which caused a lot of bleed. The patient's pain was controlled with MS Contin 60 mg twice a day. The PSA was reported at 318.5. Bone scan showed massive metastases. Subsequently, the bleeding in the urethra was stopped. The Quach catheter was taken out. The patient could not tolerate the short-acting drug, Kiana 10/325. Subsequently, Dilaudid 4 mg q.6 hours p.o. was given. The patient was subsequently being discharged today comfortably on; DISCHARGE MEDICATIONS: 1. MS Contin 60 mg twice a day. 2. Dilaudid 4 mg q.6 hours p.r.n. 3. Prednisone 20 mg a day. The patient will continue to receive the prednisone and systemic chemotherapy as an outpatient. Prognosis remains guarded. I am awaiting the results of the biopsy of the regional lymph node. MD KENZIE Shah/NABILA /[id number]
--- NOTE | 2018-09-22 13:47 | Consultation ---
DATE OF CONSULTATION: 08/31/2018 REASON FOR CONSULTATION: Left hydronephrosis, severe. HISTORY: This is a 63-year-old male who was admitted to the[facility]ital with pain, progression of his disease. The patient was originally seen in my office in 2016 with a PSA of over 100. At that time, in discussing this problem with the patient, a prostate biopsy was done, which reported that he had very severe cancer of the prostate with Pulaski score of 5 + 5 and 5 + 4. He also had perineal invasion and capsular invasion as well. The patient and I discussed his path report, we sent him for a CT scan. The CT scan showed lymphadenopathy of the iliac and periaortic lymph nodes. It also showed metastases to the ilial wings bilaterally. After that, a bone scan was performed on February 14, 2016, that showed widespread metastatic disease. The patient was then referred to Dr. Begum, who has been treating him since then. The patient now shows up with hydronephrosis and pain on the left side and pending further treatment. The way to save his kidney is to put a double-J and await further treatment by Dr. Begum. IMPRESSION: Left hydronephrosis, metastatic disease from the prostate. RECOMMENDATION: The patient has progression of the disease that was found in 2016 and at that time it was rather aggressive. The tumor has progressed. Three years after his diagnosis, now he has larger lymph nodes that have now obstructed the left proximal ureter. My suggestion is to place a double-J and give the patient any further options available. The patient had been treated with chemo in the past. I believe that this was a progression that the patient will ultimately succumb to his primary cancer of the prostate that had began metastasize. I will proceed on with placement of the double-J. I have discussed this with the patient at great detail. MD ROOPA Levine/MODL /[id number]
== END 2018-09-07 10:25 | disposition home or self-care (01) | DRG 824 ==
LOC: ER 14:45 → ERHOLD 19:19 → MED/SURG 21:08
PROVIDERS: ADMIT Internal Medicine Medical Oncology; ATTEND Internal Medicine Medical Oncology
PROC: 0T778ZZ Dilation of Left Ureter, Via Natural or Artificial Opening Endoscopic (ICD-10-PCS; 2018-09-02)
PROC: 07BB3ZX Excision of Mesenteric Lymphatic, Percutaneous Approach, Diagnostic (ICD-10-PCS; 2018-09-02)
PROC: 07DD3ZX Extraction of Aortic Lymphatic, Percutaneous Approach, Diagnostic (ICD-10-PCS; 2018-09-02)
PROC: 07DB3ZX Extraction of Mesenteric Lymphatic, Percutaneous Approach, Diagnostic (ICD-10-PCS; 2018-09-02)
PROC: 07BD3ZX Excision of Aortic Lymphatic, Percutaneous Approach, Diagnostic (ICD-10-PCS; principal; 2018-09-02 12:48)
DX: C77.2 Secondary and unspecified malignant neoplasm of intra-abdominal lymph nodes (principal); N13.30 Unspecified hydronephrosis; C79.51 Secondary malignant neoplasm of bone; N10 Acute pyelonephritis; E44.0 Moderate protein-calorie malnutrition; C61 Malignant neoplasm of prostate; C77.5 Secondary and unspecified malignant neoplasm of intrapelvic lymph nodes; N35.811 Other urethral stricture, male, meatal; E77.8 Other disorders of glycoprotein metabolism; E88.09 Other disorders of plasma-protein metabolism, not elsewhere classified; Z68.29 Body mass index [BMI] 29.0-29.9, adult
CPT/HCPCS: 10009; 36415; 49180; 71045; 74019; 74177; 74420; 74470; 78315; 80053; 81001; 82550; 82553; 83690; 84152; 84484; 85025; 85610; 85730; 88172; 88173; 88305; 88342; 93005; 99152; 99153; 99283; A9503; C2625; J1100; J2001; J2175; J2250; J2405; J2550; J2765; J3010; J7030; J7040; J7512; Q0162; Q9967

== ENCOUNTER 2018-09-15 00:01 | Inpatient (IN) | payer OTHER ==
[~2018-09-15] VITALS: Ht 182.9 cm; Wt 100.3 kg
[~2018-09-15 00:01] MED LIST changes: +DILAUDID2 MG PO; +LACTULOSE20 GM/30 M PO; +PREDNISONE20 MG PO
[2018-09-15] MEDS ORDERED: ONDANSETRON HCL INJ 2MG/ML 2ML 2 MG/ML VIAL IV STA (00:12)
[2018-09-15] MEDS ORDERED: ONDANSETRON HCL INJ 2MG/ML 2ML 2 MG/ML VIAL IV PRN (00:15)
[2018-09-15] MEDS ORDERED: MORPHINE SULFATE INJ 4 MG/ML INJ 1ML IV PRN ×2 (00:15)
[2018-09-15 00:58] LABS: BILIRUBIN,URINE NEGATIVE (NEGATIVE); CLARITY,URINE CLEAR (CLEAR); COLOR,URINE YELLOW (YELLOW); KETONES,URINE 1+ (NEGATIVE); LEUKOCYTE ESTERASE ,URINE NEGATIVE (NEGATIVE); NITRITE,URINE NEGATIVE (NEGATIVE); PROTEIN,URINE DIPSTICK 1+ (NEGATIVE); URINE UROBILINOGEN 0.2 mg/dL (0.2 - 1)
[2018-09-15 01:06] LABS: BACTERIA,URINE RARE /HPF; EPITHELIAL CELLS,URINE RARE /LPF; RBC,URINE 0-5 /HPF (0-5)
[2018-09-15 01:07] LABS: BASOPHILS # (AUTO) 0.1 (0.0-0.1); BASOPHILS % 0.5 % (0.0-1.0); HEMATOCRIT 36.3 % (38.2-49.6); HEMOGLOBIN 11.7 g/dL (14.0-18.0); LYMPHOCYTES # (AUTO) 2.4 (1.0-3.2); LYMPHOCYTES % 21.2 % (18.0-39.1); MEAN CORPUSCULAR HEMOGLOBIN 26.8 pg (28-32); MEAN CORPUSCULAR HGB CONC 32.2 g/dL (31-35); MEAN CORPUSCULAR VOLUME 83.3 fL (81-99); MONOCYTES # (AUTO) 0.7 (0.2-0.8); MONOCYTES % 6.5 % (4.4-11.3); NEUTROPHILS # (AUTO) 7.9 (2.1-6.9); NEUTROPHILS % 69.7 % (38.7-80.0); PLATELET COUNT 468 x10e3/uL (140-360); RED BLOOD COUNT 4.36 x10e6/uL (4.3-5.7); RED CELL DISTRIBUTION WIDTH 15.1 % (11.7-14.4)
[2018-09-15 01:19] LABS: ALBUMIN 3.4 g/dL (3.5-5.0); ALBUMIN/GLOBULIN RATIO 0.8 (0.8-2.0); CREATININE, SERUM 1.48 mg/dL (0.72-1.25)
[2018-09-15 01:27] LABS: CALCIUM 10.2 mg/dL (8.4-10.2)
[2018-09-15] MEDS ORDERED: SODIUM CHLORIDE 0.9% 1000ML 1,000 ML IV SCH (02:15)
[2018-09-15] MEDS: SODIUM CHLORIDE 0.9% 1000ML 1,000 ML IV SCH ×3 (03:00→17:29)
[2018-09-15] MEDS ORDERED: SODIUM CHLORIDE 0.9% 50ML 50 ML ONE (03:43)
[2018-09-15] MEDS ORDERED: IOPAMIDOL 370 MG/ML 200 ML INFUS..BTL INJ ONE (03:43)
[2018-09-15] MEDS ORDERED: HYDROMORPHONE 1MG/1ML INJ IV STA (04:29)
--- NOTE | 2018-09-15 04:41 | Diagnostic Imaging Report ---
CT Abdomen And Pelvis with Intravenous Contrast INDICATION: Mid abdominal pain, nausea, vomiting history of prostate cancer ^Abdominal pain ^[id number] ^0405 TECHNIQUE: Thin collimation axial images obtained from the diaphragm to the level of the pubic symphysis following the uneventful administration of 100 cc of low osmolar, nonionic intravenous contrast. Dose reduction techniques used: Automated exposure control, adjustment of the mAs and/or kVp according to patient size, standardized low-dose protocol, and/or iterative reconstruction technique. RADIATION DOSE: Total DLP: 585.98 mGy*cm Estimated effective dose: (DLP x 0.015 x size factor) mSv CTDIvol has been reviewed. It is below the limits set by the Radiation Protocol Committee (RPC). COMPARISON: CT abdomen/pelvis 09/02/2018, CT abdomen/pelvis 08/31/2018. ABDOMEN FINDINGS: Lung Bases: Bibasilar atelectasis. Visualized portion of the mediastinum is normal. Liver: Decreased attenuation suggestive of steatosis. Multiple rounded hypodensities throughout the parenchyma are redemonstrated and have the appearance of cysts. No enhancing lesions. Gallbladder: Present and appears normal. No biliary ductal dilatation. Pancreas: Normal attenuation without mass or ductal dilatation. Spleen: Normal in size. No evidence of mass.. Adrenal Glands: No evidence for mass. Kidneys: Right: Normal enhancement. No soft tissue mass. No hydronephrosis. Left: Stent in the collecting system extends to the bladder. Hydronephrosis is redemonstrated. There is a new cyst or fluid collection in the lateral upper pole that measures 20 mm. Lymph Nodes: Bulky lymphadenopathy in the prosper hepatis and in the root of the small bowel mesentery is redemonstrated. Lymph node conglomeration at the root of the small bowel mesentery measures 6.9 x 12.6 cm and is grossly stable. Bulky lymphadenopathy at the hilum of the left kidney and surrounding the aorta is stable with left periaortic lymph node conglomeration measuring 2.4 cm. Perirectal lymph nodes are increased in number and measure up to 9 mm. These are stable. A lymph node along the right external iliac chain measures 10 mm and is stable. Aorta: Normal in diameter PELVIS FINDINGS: Bowel: Stomach: Distended with water. No focal mural thickening. Small Bowel: Proximal duodenum is distended with water. The third portion of the duodenum is collapsed. The remainder of the small bowel is collapsed. Large Bowel: Collapsed. Appendix: Normal appendix. Bladder: Under distended and contains the distal loop of the left ureteral stent. Small amount of pelvic ascites. No free air. Bones: Diffuse osseous metastases. No pathologic fractures. IMPRESSION: 1. No change in abdominal, mesenteric, or retroperitoneal lymphadenopathy 2. Interval placement of left ureteral stent with persistent hydronephrosis due to lymphadenopathy. 3. Steatosis. Stable hepatic lesions, suggestive of cysts. 4. Collapsed small bowel from the third portion of the duodenum towards. Mass effect on the duodenum from mesenteric lymphadenopathy may result in partial obstruction. Signed by: Dr. Mihai Zarco MD on 09/15/2018 4:37 AM
[2018-09-15] MEDS ORDERED: HYDROMORPHONE 2MG/ML 2 MG/ML ML ONE (04:58)
[2018-09-15] MEDS ORDERED: HYDROMORPHONE 1MG/1ML INJ IV PRN (05:15)
[2018-09-15] MEDS ORDERED: MORPHINE SULFATE 2 MG/ML SYR 1ML IV PRN (05:15)
[2018-09-15] MEDS ORDERED: HYDROMORPHONE 2MG/ML 2 MG/ML ML IV PRN (06:45)
--- NOTE | 2018-09-15 06:50 | NUR ---
REPORT AND CARE ENDORSED TO JORDEN DYE
[2018-09-15] MEDS: ONDANSETRON HCL INJ 2MG/ML 2ML 2 MG/ML VIAL IV PRN ×3 (07:45→22:35)
--- NOTE | 2018-09-15 08:58 | NUR ---
pt placed on wale bed
[2018-09-15] MEDS ORDERED: LACTULOSE SYRUP 20 GM/30 ML UDC PO PRN (09:30)
[2018-09-15] MEDS ORDERED: BENZOCAINE 20% SPR 60 ML CAN MT ONE (10:00)
[2018-09-15] MEDS: HYDROMORPHONE 2MG/ML 2 MG/ML ML IV PRN ×4 (10:12→22:35)
--- NOTE | 2018-09-15 11:54 | Diagnostic Imaging Report ---
Exam: KUB - 1 view Clinical History: NG tube placement Comparison: KUB of 09/02/[address] abdomen and pelvis of 09/15/2018 Findings: NG tube with tip in the stomach and side port at the level of the GE junction. Nonobstructive bowel gas pattern. Delayed nephrogram of both kidneys with mild elevation of the left renal collecting system. Nephroureteral catheter partially visualized. Impression: NG tube with tip in the stomach and side port at the level of the GE junction. Tube can be advanced approximately 5 cm. Left renal hydronephrosis with left nephroureteral stent in place. Signed by: Vero Nevarez MD on 09/15/2018 11:51 AM
--- NOTE | 2018-09-15 11:59 | NUR ---
pt has approx 900 cc gastric content output via ng tube
[2018-09-15] MEDS ORDERED: SENOKOT8.6 MG PO (14:01)
--- NOTE | 2018-09-15 14:03 | NUR ---
PT HAS APPROX 700 CC GASTRIC CONTENT OUTPUT VIA NG TUBE
--- NOTE | 2018-09-15 14:27 | NUR ---
DR. VIERA CALLED AND NOTIFIED OF PT REQUEST FOR DNR
--- NOTE | 2018-09-15 16:30 | NUR ---
This 63 y/o male admitted to the unit from the ER dx of partial sm bowel obstruction under the care of Dr.'s Tam. The pt. arrives to the unit with nasogastric tube and iv in place. The pt. report his current pain level is 8/10 and was medicated only 2 hours ago. The pt. was medicated for nausea upon arrival. Vs are as follows 97.1 101 20 153/92 985 O2 sat. He was made comfortable and is currently resting comfortably.
[2018-09-15 16:36] VITALS: BP 153/92
[2018-09-15 16:53] VITALS: BP 153/92
[2018-09-15] MEDS: MORPHINE SULFATE 30 MG TAB ER PO SCH (17:29)
--- NOTE | 2018-09-15 19:05 | NUR ---
Patient visited in room during nursing rounds. Patient alert and oriented x3. NG tube to Left nare and connected to Low intermittent wall suction (LIWS). Gastric output appear dark brown fluid. Patient with long history of Prostate CA. Pt daughter (POA) at bedside. Pt with frequent pain on lower abdominal area. On IVF (NS at 100ml/hr). Call rivera within reach.
--- NOTE | 2018-09-15 19:40 | NUR ---
Spoke with Dr. English over the phone and informed him that he is consulted to see patient. Reason for consult is Partial SBO. aware and states he will see patient tomorrow (09/16/18).
[2018-09-15 20:00] VITALS: BP 137/87
[2018-09-16] VITALS (8 sets, daily range): BP systolic 123–156; BP diastolic 77–91
[2018-09-16] MEDS: SODIUM CHLORIDE 0.9% 1000ML 1,000 ML IV SCH ×2 (03:00→12:04)
[2018-09-16] MEDS: HYDROMORPHONE 2MG/ML 2 MG/ML ML IV PRN ×9 (03:00→21:53)
[2018-09-16] MEDS: ONDANSETRON HCL INJ 2MG/ML 2ML 2 MG/ML VIAL IV PRN ×5 (03:00→20:02)
--- NOTE | 2018-09-16 06:47 | NUR ---
Dr. English came and visited pt in room. MD explained next plan of care to patient.
--- NOTE | 2018-09-16 06:52 | NUR ---
RECEIVED PATIENT RESTING IN BED. NO ACUTE DISTRESS NOTED. PAIN AT A COMFORTABLE LEVEL AT THIS TIME. DAUGHTER AT BEDSIDE. CALL LIGHT WITHIN REACH. BED IN THE LOWEST POSITION.
[2018-09-16] MEDS: MORPHINE SULFATE 30 MG TAB ER PO SCH ×2 (08:42→20:15)
[2018-09-16] MEDS ORDERED: LEUPROLIDE ACETATE 7.5 MG IM ONE (09:30)
--- NOTE | 2018-09-16 09:48 | NUR ---
DR. VIERA IN ROUNDING ON PATIENT. ORDER TO CANCEL DEPO LUPRON SHOT.
--- NOTE | 2018-09-16 12:49 | Consultation ---
DATE OF CONSULTATION: 09/16/2018 HISTORY OF PRESENT ILLNESS: The patient is a 63-year-old male, who has history of carcinoma of the prostate with metastasis, he says he has been on chemotherapy for three years, who is presenting with complaints of abdominal pain with nausea and vomiting. Evaluation with CT scan of the abdomen and pelvis suggests obstruction of third part of the duodenum by lymphadenopathy. The patient has a nasogastric tube in place. He says he is not passing any flatus now. He still has abdominal pain. PAST MEDICAL HISTORY: As stated above. He has had previous placement of ureteral stent. ALLERGIES: HE HAS NO ALLERGIES. MEDICATIONS: Listed in the chart. FAMILY HISTORY: Noncontributory. SOCIAL HISTORY: The patient does not smoke cigarettes or drink alcohol. REVIEW OF SYSTEMS: As stated above, otherwise was negative. PHYSICAL EXAMINATION: GENERAL: The patient is awake and alert. VITAL SIGNS: Normal. He is not tachycardic. HEENT: Reveals no scleral icterus. NECK: Has no masses. LUNGS: Equal breath sounds are clear bilaterally. CARDIAC: Regular rate and rhythm with no murmur. ABDOMEN: Slightly distended. Soft. There is slight epigastric tenderness. There is no mass. EXTREMITIES: Slight edema. NEUROLOGIC: Grossly intact. LAB TESTS: The white blood count is 11.4, hemoglobin and hematocrit are normal. Chemistries reveals slightly elevated creatinine at 1.5. ASSESSMENT: A 63-year-old male with findings suggestive of obstruction of third portion of duodenum secondary to likely metastatic cancer. I think the patient would best be treated at this point with gastrojejunostomy. PLAN: Discuss the case with Dr. Begum. Tentatively, we could do surgery tomorrow. This was explained to the patient. Thank you for asking me to see Mr. Goodson. MD CLAUDIA Rico/NABILA /[id number]
--- NOTE | 2018-09-16 15:52 | NUR ---
PATIENT C/O FEELING JITTERY AND WEAK DUE TO BEING NPO. PAGED DR. WALTERS FOR DIFFERENT FLUID ORDERS. RETURNED CALLED AND RECEIVED ORDER FOR FLUIDS D5 1/2 NS @ 125CC/HR AND NO ACCUCHECK ORDERS AT THIS TIME.
--- NOTE | 2018-09-16 16:27 | NUR ---
DISCUSSED IN ROUNDS PT PROJECTED DISCHARGE IS 09/18 HAVING LAP WITH GELBER TODAY, NPO, NG TUBE AND GETTING SUCTION.
[2018-09-16] MEDS: DEXTROSE 5%/0.45% SOD CHL 1,000 ML IV SCH ×2 (16:28→23:11)
--- NOTE | 2018-09-16 19:04 | NUR ---
REPORT GIVEN TO ONCOMING NURSE, PATIENT IS RESTING IN BED. NO ACUTE DISTRESS NOTED. CALL LIGHT WITHIN REACH. BED IN THE LOWEST POSITION.
[2018-09-17] VITALS (8 sets, daily range): BP systolic 121–133; BP diastolic 78–88
[2018-09-17] MEDS: HYDROMORPHONE 2MG/ML 2 MG/ML ML IV PRN ×12 (00:28→23:11)
[2018-09-17] MEDS: ONDANSETRON HCL INJ 2MG/ML 2ML 2 MG/ML VIAL IV PRN ×5 (04:09→21:09)
[2018-09-17] MEDS: DEXTROSE 5%/0.45% SOD CHL 1,000 ML IV SCH ×2 (06:17→14:20)
--- NOTE | 2018-09-17 06:50 | NUR ---
RECEIVED PATIENT RESTING IN BED. NO ACUTE DISTRESS NOTED. PAIN AT A COMFORTABLE LEVEL AT THIS TIME. FAMILY MEMBER AT BEDSIDE. CALL LIGHT WITHIN REACH. BED IN THE LOWEST POSITION.
[2018-09-17] MEDS: MORPHINE SULFATE 30 MG TAB ER PO SCH ×2 (09:00→20:11)
[2018-09-17 11:04] LABS: ANION GAP 13.2 mmol/L (8-16); BLOOD UREA NITROGEN 11 mg/dL (7-26); BUN/CREATININE RATIO 9 (6-25); CALCIUM 7.8 mg/dL (8.4-10.2); CARBON DIOXIDE 25 mmol/L (22-29); CHLORIDE 106 mmol/L (98-107); EST GLOMERULAR FILTRATION RATE > 60 ML/MIN (60-); GLUCOSE 119 mg/dL (74-118); POTASSIUM 4.2 mmol/L (3.5-5.1); SODIUM 140 mmol/L (136-145)
--- NOTE | 2018-09-17 18:59 | NUR ---
Report given to oncoming nurse, walking rounds done. Patient is resting in bed. No acute distress noted. Family at bedside. Call light within reach. Bed in the lowest position.
[2018-09-18] VITALS: BP 126/85
[2018-09-18] MEDS: ONDANSETRON HCL INJ 2MG/ML 2ML 2 MG/ML VIAL IV PRN ×3 (01:25→12:45)
[2018-09-18] MEDS: HYDROMORPHONE 2MG/ML 2 MG/ML ML IV PRN ×7 (01:25→12:45)
[2018-09-18 04:00] VITALS: BP 119/79
--- NOTE | 2018-09-18 07:00 | NUR ---
Pt received resting in bed. Alert and oriented x4 with Salum Sump to left nare to suction. Pt is NPO due to SBO. Oriented to staff and surroundings. Encouraged to press call rivera if help needed. Pt verbalized understanding of teaching. Will monitor
[2018-09-18 08:27] VITALS: BP 122/74
[2018-09-18 08:45] VITALS: BP 122/74
[2018-09-18] MEDS: DEXTROSE 5%/0.45% SOD CHL 1,000 ML IV SCH ×2 (08:45)
[2018-09-18] MEDS: MORPHINE SULFATE 30 MG TAB ER PO SCH ×2 (09:00→19:53)
[2018-09-18 11:46] VITALS: BP 131/78
--- NOTE | 2018-09-18 14:37 | NUR ---
Pt left to OR for surgery
[2018-09-18] MEDS ORDERED: ACETAMINOPHEN 1000 MG/100 ML IV ONE (14:51)
[2018-09-18] MEDS ORDERED: ROCURONIUM BROMIDE 10 MG/ML 5ML VIAL ONE (14:51)
[2018-09-18] MEDS ORDERED: LIDOCAINE HCL 2% LOCAL INJ 5 ML SDV VIAL INJ ONE (14:51)
[2018-09-18] MEDS ORDERED: ONDANSETRON HCL INJ 2MG/ML 2ML 2 MG/ML VIAL ONE ×2 (14:51→16:39)
[2018-09-18] MEDS ORDERED: NEOSTIGMINE 5 MG/5ML SYR ONE (14:51)
[2018-09-18] MEDS ORDERED: SUCCINYLCHOLINE 200 MG/10 ML SYR ONE (14:51)
[2018-09-18] MEDS ORDERED: PROPOFOL IV EMULSION 10 MG/ML 20 ML VIAL ONE (14:51)
[2018-09-18] MEDS ORDERED: DEXAMETHASONE SOD PHOS INJ 4 MG/ML VIAL ONE (14:51)
[2018-09-18] MEDS ORDERED: SEVOFLURANE INHAL SOLN 250 ML PEN BTL ONE (14:51)
[2018-09-18] MEDS ORDERED: GLYCOPYRROLATE INJ 1MG/ 5 ML SYR ONE (14:51)
[2018-09-18] MEDS ORDERED: BUPIVACAINE HCL 0.5% INJ 30 ML VIAL INJ ONE (15:03)
[2018-09-18] MEDS ORDERED: NALOXONE HCL INJ 0.4 MG/ML AMP IV PRN (16:30)
[2018-09-18] MEDS ORDERED: ACETAMINOPHEN 1000 MG/100 ML IV PRN (16:30)
[2018-09-18] MEDS ORDERED: KETOROLAC TROMETHAMINE 30 MG/ML VIAL IV PRN (16:30)
[2018-09-18] MEDS ORDERED: HYDROMORPHONE 2MG/ML 2 MG/ML ML ONE (16:31)
[2018-09-18] MEDS ORDERED: METOCLOPRAMIDE HCL 10 MG/2ML VIAL ONE (16:51)
[2018-09-18] MEDS ORDERED: PROMETHAZINE HCL (IM) 25 MG/ML VIAL ONE (16:52)
[2018-09-18] MEDS: HYDROMORPHONE 0.2MG/ML-SOD CHL 30ML PCA SYRINGE IV PRN (16:54)
--- NOTE | 2018-09-18 17:13 | NUR ---
Pt received from PACU with surgical incision to mid-abdomen, three trocar sites noted. Pt on MILL RECORDER pump. Emotional support given. Call rivera within reach. Will monitor
[2018-09-18] MEDS ORDERED: MIDAZOLAM HCL 2 MG/2 ML VIAL ONE ×2 (17:16→17:17)
[2018-09-18] MEDS ORDERED: FENTANYL CITRATE/PF 100MCG/2 ML INJ ONE ×2 (17:16→17:17)
--- NOTE | 2018-09-18 17:24 | Operative Report ---
DATE OF PROCEDURE: 09/18/2018 SURGEON: Gilmar English MD PREOPERATIVE DIAGNOSES: Duodenal obstruction, retroperitoneal mass. POSTOPERATIVE DIAGNOSES: Duodenal obstruction, retroperitoneal mass. PROCEDURE: Diagnostic laparoscopy, open gastrojejunostomy. RESEARCH LAB ASSISTANT: None. ANESTHESIA: General endotracheal. INDICATIONS AND FINDINGS: The patient is a 63-year-old male, who has known history of metastatic carcinoma of the prostate, who presented with nausea and vomiting. Workup revealed obstruction of duodenum secondary to metastatic cancer involving the retroperitoneum and 3rd portion of duodenum. Surgery, there was a large mass in the root of the mesentery causing the small bowel mesentery to be shortened. Small bowel was not dilated. The mass was about 20 cm in diameter. The stomach also was not dilated with the NG tube in place. Because of the short mesentery, a retrocolic gastrojejunostomy was necessary. TECHNIQUE: After adequate general endotracheal anesthesia with the patient in supine position, the abdomen was prepped and draped in a sterile fashion with ChloraPrep solution. Skin in the umbilicus was infiltrated with 0.5% Marcaine. Incision was made in the umbilicus, abdominal wall was elevated and Veress needle was introduced. Pneumoperitoneum was then created. A 10 mm trocar and cannula was then passed through the umbilical wound. Laparoscopic camera was introduced. Initial laparoscopy revealed large mass at the root of the mesentery. Small bowel was not dilated. The upper abdomen initially was obscured by omentum. Two 5 mm trocars and cannulas were placed in the left upper quadrant. The omentum was retracted away from the stomach. Stomach was not dilated. There was a large mass which appeared to involve the retroperitoneum due to the mesentery, transverse mesocolon. It was decided that during the entire procedure laparoscopically would not be safe. An upper midline incision was made. The small bowel mesentery is notably very shortened. Stomach was mobilized. The vessels going to stomach were divided with LigaSure device freeing the stomach where it has most dependent portion. The small bowel was mobilized as much as possible though this was limited because of tumor involvement of the mesentery. Small bowel was brought up in retrocolic fashion. The stomach mobilized inferiorly so the anastomosis could be made. Anastomosis was made between the stomach and the small bowel in the posterior aspect of the stomach as most deep ended portion of the MUKUL stapler and TL60 stapler. Hemostasis was seen to be adequate. The wound was irrigated with saline, inspected for hemostasis which was seen to be adequate. The wound was then closed. The midline fascia was closed with running suture of #1 PDS. Subcutaneous tissue was irrigated with saline. Skin to all wounds closed with sherry. Sterile dressing was applied to each wound. The patient tolerated the procedure well. Estimated blood loss was 25 mL. There were no complications. All counts were correct and the patient was taken to the recovery room in satisfactory condition. MD RADHA RicoG/MODL /[id number] cc: Bess Begum MD
[2018-09-18] MEDS: SODIUM CHLORIDE 0.9% 250ML IRRIG IR SCH ×2 (17:30→19:54)
[2018-09-18] MEDS: DEXTROSE 5%/LACTATED RINGERS 1,000 ML IV SCH (18:40)
--- NOTE | 2018-09-18 19:38 | NUR ---
Received change of shift report from AM nurse. Rounds completed.
[2018-09-18 20:00] VITALS: BP 125/92
--- NOTE | 2018-09-18 20:17 | NUR ---
Patient AAOx3. Family at bedside. Teaching done with pt. on pain meds. Pt verbalized understanding of teaching. Dressing to abd dry and intact. Noted 3 trocar sites intact. Bowel sounds diminished. Patient c/o of pain =8. Reminder of BINDERY ASSISTANT pain med. NGT flushed with 30cc H20. Patient very sensitive to flush. IV intact to Right AC and left hand.
[2018-09-18] MEDS: CEFAZOLIN SOD 1 GM/NS 50ML 50 ML IV SCH (21:27)
[2018-09-19] VITALS (7 sets, daily range): BP systolic 116–144; BP diastolic 78–91
--- NOTE | 2018-09-19 | NUR ---
Patient refused to flush NGT. Informed patient that flushing the NGT help prevent clog of tube, Pt refused flushing.
[2018-09-19] MEDS: DEXTROSE 5%/LACTATED RINGERS 1,000 ML IV SCH ×3 (00:16→16:27)
[2018-09-19] MEDS: SODIUM CHLORIDE 0.9% 250ML IRRIG IR SCH ×4 (00:30→12:10)
[2018-09-19] MEDS: HYDROMORPHONE 0.2MG/ML-SOD CHL 30ML PCA SYRINGE IV PRN ×5 (01:42→23:17)
[2018-09-19] MEDS: CEFAZOLIN SOD 1 GM/NS 50ML 50 ML IV SCH ×2 (03:22→08:47)
--- NOTE | 2018-09-19 07:00 | NUR ---
Pt received resting in bed. LINE SERVICE SUPERVISOR syringe changed out with aid from charge nurse. Emotional support given. Call rivera within reach. Will monitor
[2018-09-19] MEDS: MORPHINE SULFATE 30 MG TAB ER PO SCH ×3 (08:47→21:00)
--- NOTE | 2018-09-19 12:47 | NUR ---
NGT to left nare removed by Dr. English. Pt can have clear liquid
--- NOTE | 2018-09-19 19:00 | NUR ---
Bed changed to accommodate pt's height. PRINCIPAL PROCESS ENGINEER pump checked with oncoming nurse. Endorsed to oncoming shift
--- NOTE | 2018-09-19 20:00 | NUR ---
Received change of shift report from AM nurse. Walking rounds done.
--- NOTE | 2018-09-19 20:21 | NUR ---
Patient c/o of nausea. Meds given as ordered by MD. Patient AAOx3. TRAINING SYSTEMS OFFICER noted for pain and patient is using as need.IV intact. Family at bedside. Monitor for changes.
[2018-09-19] MEDS: BALSAM PERU/CASTOR OIL 60 GM OINT...G. TP SCH (21:00)
[2018-09-19] MEDS: CEFEPIME 1GM/NS 0.9% 50 ML 50 ML IV SCH (22:15)
[2018-09-19 22:34] LABS: BILIRUBIN,URINE NEGATIVE (NEGATIVE); CLARITY,URINE CLEAR (CLEAR); COLOR,URINE YELLOW (YELLOW); KETONES,URINE NEGATIVE (NEGATIVE); LEUKOCYTE ESTERASE ,URINE NEGATIVE (NEGATIVE); NITRITE,URINE NEGATIVE (NEGATIVE); PROTEIN,URINE DIPSTICK NEGATIVE (NEGATIVE); URINE UROBILINOGEN 1 mg/dL (0.2 - 1)
[2018-09-19 22:49] LABS: EPITHELIAL CELLS,URINE RARE /LPF; RBC,URINE 0-5 /HPF (0-5); WBC,URINE (MAN) 0-5 /HPF (0-5)
[2018-09-20] VITALS (8 sets, daily range): BP systolic 131–156; BP diastolic 84–93
--- NOTE | 2018-09-20 | NUR ---
Patient c/o of painful urination and constipation. Received order from . Continue monitor.
[2018-09-20] MEDS: DEXTROSE 5%/LACTATED RINGERS 1,000 ML IV SCH ×3 (01:50→17:07)
--- NOTE | 2018-09-20 04:00 | NUR ---
Patient resting quitly at this time.
--- NOTE | 2018-09-20 07:08 | NUR ---
Pt received resting in bed. Pt pump ongoing with 5.81ml fluid remaining. Emotional support given. Will monitor
[2018-09-20] MEDS: HYDROMORPHONE 0.2MG/ML-SOD CHL 30ML PCA SYRINGE IV PRN ×2 (08:15→20:10)
--- NOTE | 2018-09-20 08:15 | NUR ---
FLIGHT RADIO OFFICER Dilaudid syringe almost empty. Changed out with assistance of another nurse. Emotional support given. Will monitor
[2018-09-20] MEDS: BALSAM PERU/CASTOR OIL 60 GM OINT...G. TP SCH ×2 (08:54→21:44)
[2018-09-20] MEDS: MORPHINE SULFATE 30 MG TAB ER PO SCH ×2 (08:54→21:44)
[2018-09-20] MEDS: PREDNISONE 20 MG TAB PO SCH (08:54)
[2018-09-20] MEDS: POLYETHYLENE GLYCOL 3350 17 GM PACK PO SCH (08:54)
[2018-09-20] MEDS: CEFEPIME 1GM/NS 0.9% 50 ML 50 ML IV SCH ×2 (10:15→21:44)
[2018-09-20] MEDS: BISACODYL 10 MG SUPP PR PRN (11:12)
--- NOTE | 2018-09-20 11:12 | NUR ---
Pt refused Lactulose statting that it doesn't work. Dulcolax Suppository given. Pt passed flatus. Will monitor
--- NOTE | 2018-09-20 12:23 | NUR ---
Handoff given RN. CYLINDER PRESS OPERATOR APPRENTICE dosage verified.
[2018-09-20] MEDS: ONDANSETRON HCL INJ 2MG/ML 2ML 2 MG/ML VIAL IV PRN ×2 (17:11→21:44)
[2018-09-21] VITALS (8 sets, daily range): BP systolic 113–143; BP diastolic 70–91
[2018-09-21] MEDS: DEXTROSE 5%/LACTATED RINGERS 1,000 ML IV SCH ×3 (05:07→16:16)
--- NOTE | 2018-09-21 07:10 | NUR ---
PATIENT IS IN STABLE CONDITION WITH NO S/S OF RESPIRATORY DISTRESS. PATIENT C/O LEFT LOWER ABD PAIN 09/23- PATIENT HAS BUSINESS ASST DILAUDID AVAILABLE BUT IS REQUESTING SCHEDULED PO MORPHINE. DRESSINGS APPLIED TO MID-ABD INCISION AND THREE-TROCAR SITES. CALL LIGHT IS WITHIN REACH, PATIENT INSTRUCTED TO CALL FOR ASSISTANCE NEEDED.
[2018-09-21] MEDS: MORPHINE SULFATE 30 MG TAB ER PO SCH ×2 (08:52→20:45)
[2018-09-21] MEDS: POLYETHYLENE GLYCOL 3350 17 GM PACK PO SCH (08:56)
[2018-09-21] MEDS: ONDANSETRON HCL INJ 2MG/ML 2ML 2 MG/ML VIAL IV PRN ×4 (08:56→22:14)
[2018-09-21] MEDS: PREDNISONE 20 MG TAB PO SCH (08:56)
[2018-09-21] MEDS: BALSAM PERU/CASTOR OIL 60 GM OINT...G. TP SCH ×2 (09:00→20:46)
[2018-09-21] MEDS: CEFEPIME 1GM/NS 0.9% 50 ML 50 ML IV SCH ×2 (09:27→22:42)
[2018-09-21] MEDS: HYDROMORPHONE 0.2MG/ML-SOD CHL 30ML PCA SYRINGE IV PRN ×2 (12:29→20:15)
--- NOTE | 2018-09-21 16:39 | NUR ---
Nutrition Screen Note RD Recommendation for Physician: -Advance as tolerated to GI soft diet Plan of Care: RD following, monitoring for tolerance and adequacy Nutrition reason for involvement: LOS Primary Diagnose(s): partial SBO PMH: carcinoma of the prostate with metastasis Ht: 72in Wt: 230lb BMI: 31.2kg/m2 IBW: 178lb +/- 10% RD Assessment: (09/21) Chart reviewed. Labs and meds reviewed. 63yo M, who was admitted for abdominal pain with nausea and vomiting. Pt had gastrojejunostomy on 09/18. Visited pt in the room. Pt reported tolerating full liquid diet. Pt stated I am nauseated all day but no vomiting episode. + BM. Pt complains of hiccups and some sore throat, which are getting better. Ambulated with PT today. Currently on LOADING RACK SUPERVISOR pumps and Dilaudid. Will continue to monitor and follow. Current Diet: full liquid diet Malnutrition Evaluation (09/21/2018) The patient does not meet criteria for a specified degree of malnutrition at this time. Will re-evaluate at follow-up as appropriate. Diet Education Needs Assessment: Diet education not indicated Nutrition Care Level: low Signed: Sanam Simpson, MS, RD, LD
--- NOTE | 2018-09-21 18:55 | NUR ---
PATIENT IN STABLE CONDITION WITH NO S/S OF RESPIRATORY DISTRESS. MEDICAL FEE CLERK PUMP ASSESSED WITH ONCOMING NURSE. PATIENT STATES PAIN OF 7/10. DAUGHTER PRESENT IN ROOM. CALL LIGHT IS WITHIN REACH, PATIENT INSTRUCTED TO CALL FOR ASSISTANCE NEEDED. BEDSIDE REPORT GIVEN TO ONCOMING NURSE.
[2018-09-21] MEDS: TAMSULOSIN HCL 0.4 MG CAP PO SCH (20:45)
[2018-09-22] VITALS (8 sets, daily range): BP systolic 121–155; BP diastolic 74–87
[2018-09-22] MEDS: HYDROMORPHONE 0.2MG/ML-SOD CHL 30ML PCA SYRINGE IV PRN (06:38)
--- NOTE | 2018-09-22 07:00 | NUR ---
PATIENT IS AWAKE AND IN STABLE CONDITION WITH NO S/S OF RESPIRATORY DISTRESS. PATIENT HAVING LEFT SIDED BAD PAIN 9/10- HARVEST WORKER DILAUDID RECENTLY CHANGED. DRESSINGS TO ABD DRY AND INTACT. CALL LIGHT IS WITHIN REACH, PATIENT INSTRUCTED TO CALL FOR ASSISTANCE NEEDED.
[2018-09-22] MEDS: ONDANSETRON HCL INJ 2MG/ML 2ML 2 MG/ML VIAL IV PRN (07:03)
[2018-09-22] MEDS: PREDNISONE 20 MG TAB PO SCH (08:15)
[2018-09-22] MEDS: POLYETHYLENE GLYCOL 3350 17 GM PACK PO SCH (08:18)
[2018-09-22] MEDS: MORPHINE SULFATE 30 MG TAB ER PO SCH ×2 (08:18→21:37)
[2018-09-22] MEDS: BALSAM PERU/CASTOR OIL 60 GM OINT...G. TP SCH ×2 (08:24→21:37)
[2018-09-22] MEDS: DEXTROSE 5%/LACTATED RINGERS 1,000 ML IV SCH ×2 (08:25→18:54)
[2018-09-22] MEDS: FINASTERIDE 5 MG TAB PO SCH (09:00)
--- NOTE | 2018-09-22 09:12 | NUR ---
PATIENT AMBULATING IN THE HALLWAY WITH HIS DAUGHTER. PATIENT IN STABLE CONDITION WITH NO S/S OF RESPIRATORY DISTRESS.
[2018-09-22] MEDS: CEFEPIME 1GM/NS 0.9% 50 ML 50 ML IV SCH ×2 (10:14→23:26)
--- NOTE | 2018-09-22 19:06 | NUR ---
PATIENT IS IN STABLE CONDITION WITH NO S/S OF RESPIRATORY DISTRESS. PATIENT STATES CURRENT PAIN LEVEL A 5/10- AUGER MILL OPERATOR PUMP AVAILABLE TO PATIENT. IV FLUIDS INFUSING. DRESSING TO MID-ABD AND TROCAR SITES CLEANED AND DRESSING CHANGED. FAMILY MEMBER PRESENT IN ROOM. CALL LIGHT IS WITHIN REACH, PATIENT INSTRUCTED TO CALL FOR ASSISTANCE NEEDED. BEDSIDE REPORT GIVEN TO ONCOMING NURSE.
[2018-09-22] MEDS: TAMSULOSIN HCL 0.4 MG CAP PO SCH (21:37)
[2018-09-23] VITALS (8 sets, daily range): BP systolic 119–143; BP diastolic 77–90
[2018-09-23] MEDS: DEXTROSE 5%/LACTATED RINGERS 1,000 ML IV SCH ×3 (05:40→16:48)
[2018-09-23] MEDS: HYDROMORPHONE 0.2MG/ML-SOD CHL 30ML PCA SYRINGE IV PRN (06:08)
--- NOTE | 2018-09-23 07:30 | NUR ---
PT UP IN BED AWAKE ,STATES PAIN LEVEL 5 ,ORTHO TECH PUMP INFUSING
[2018-09-23] MEDS: PREDNISONE 20 MG TAB PO SCH (08:31)
[2018-09-23] MEDS: FINASTERIDE 5 MG TAB PO SCH (08:31)
[2018-09-23] MEDS: MORPHINE SULFATE 30 MG TAB ER PO SCH ×2 (08:32→21:32)
[2018-09-23] MEDS: POLYETHYLENE GLYCOL 3350 17 GM PACK PO SCH (08:34)
[2018-09-23] MEDS: BALSAM PERU/CASTOR OIL 60 GM OINT...G. TP SCH ×2 (09:00→21:32)
--- NOTE | 2018-09-23 09:00 | NUR ---
DR NASH HERE
[2018-09-23] MEDS: CEFEPIME 1GM/NS 0.9% 50 ML 50 ML IV SCH ×2 (10:15→23:25)
[2018-09-23] MEDS ORDERED: HYDROMORPHONE HCL 2 MG TAB PO PRN (12:00)
[2018-09-23] MEDS: ONDANSETRON HCL INJ 2MG/ML 2ML 2 MG/ML VIAL IV PRN ×2 (18:36→23:25)
--- NOTE | 2018-09-23 18:39 | NUR ---
PT C/O NAUSA AND VOMITING-MEDICATED,UP IN BR.
[2018-09-23] MEDS: HYDROMORPHONE HCL 2 MG TAB PO PRN (19:01)
[2018-09-23] MEDS: TAMSULOSIN HCL 0.4 MG CAP PO SCH (21:31)
[2018-09-24] VITALS (8 sets, daily range): BP systolic 119–153; BP diastolic 79–89
[2018-09-24] MEDS: HYDROMORPHONE HCL 2 MG TAB PO PRN ×4 (01:21→17:15)
[2018-09-24] MEDS: DEXTROSE 5%/LACTATED RINGERS 1,000 ML IV SCH ×3 (02:54→16:16)
--- NOTE | 2018-09-24 07:30 | NUR ---
PT UP IN BED C/O PAIN LEVEL 7 MEDICATED WITH SCHEDULED PAIN MED.
[2018-09-24] MEDS: MORPHINE SULFATE 30 MG TAB ER PO SCH ×2 (08:18→20:56)
--- NOTE | 2018-09-24 08:34 | NUR ---
DISCUSSED CASE AND DC PLAN WITH DR VIERA PLAN DC HOME FRIDAY CURRENTLY TRANSITIONING PAIN MEDS FROM IV TO PO PT ON HIGH DOSE NARCOTICS AT HOME FOR PAIN CONTROL IF DC'D ON TOO LOW OF DOSE PT WILL READMIT WITH UNCONTROLLABLE PAIN
--- NOTE | 2018-09-24 09:15 | NUR ---
PT UP IN ROOM AMBULATING DOING WELL
[2018-09-24] MEDS: PREDNISONE 20 MG TAB PO SCH (09:24)
[2018-09-24] MEDS: BALSAM PERU/CASTOR OIL 60 GM OINT...G. TP SCH ×2 (09:24→20:56)
[2018-09-24] MEDS: POLYETHYLENE GLYCOL 3350 17 GM PACK PO SCH (09:24)
[2018-09-24] MEDS: FINASTERIDE 5 MG TAB PO SCH (09:24)
[2018-09-24] MEDS: ONDANSETRON HCL INJ 2MG/ML 2ML 2 MG/ML VIAL IV PRN ×3 (09:44→17:15)
--- NOTE | 2018-09-24 09:45 | NUR ---
PT C/O NAUSEA MEDICATED.DR NASH HERE
[2018-09-24] MEDS: CEFEPIME 1GM/NS 0.9% 50 ML 50 ML IV SCH ×2 (10:58→22:39)
--- NOTE | 2018-09-24 13:25 | NUR ---
PT C/O PAIN AND NAUSEA MEDICATED,UNABLE TO EAT LUNCH
[2018-09-24] MEDS ORDERED: MENTHOL TP PRN (13:30)
[2018-09-24] MEDS ORDERED: CAMPHOR TP PRN (13:30)
[2018-09-24] MEDS ORDERED: PHENOL TP PRN (13:30)
--- NOTE | 2018-09-24 16:33 | NUR ---
PT CALLED C/O NAUSEA AND PAIN EXPLAINED TO PT WAS NOT TIME FOR MEDICATION AT THIS TIME.ACKNOWLEDGE UNDERSTANDING.
--- NOTE | 2018-09-24 17:15 | NUR ---
pt c/o severe abd pain and nausea medicated.
--- NOTE | 2018-09-24 17:36 | NUR ---
paged dr allison pt vomiting ,appetite poor,
[2018-09-24] MEDS ORDERED: PROMETHAZINE 12.5MG/ NACL 0.9% 12.5 MG/50 ML BAG IV PRN (18:15)
[2018-09-24] MEDS: BISACODYL 10 MG SUPP PR PRN (18:45)
--- NOTE | 2018-09-24 18:46 | NUR ---
PT STATES COULD NO T GO TO BR,GAVE PT SUPPOSITIORY
[2018-09-24] MEDS: TAMSULOSIN HCL 0.4 MG CAP PO SCH (20:56)
[2018-09-24] MEDS: PROMETHAZINE 12.5MG/ NACL 0.9% 50 ML IV PRN (21:14)
--- NOTE | 2018-09-24 21:15 | NUR ---
PATIENT RESTING IN BED, NO SIGNS OF RESPIRATORY DISTRESS NOTED. PATIENT COMPLAINS OF SLIGHT NAUSEA AND WAS GIVEN MEDICATION TO RELIEVE SYMPTOMS. BED IN LOWEST POSITION, CALL LIGHT WITHIN EASY REACH, WILL CONTINUE TO MONITOR.
--- NOTE | 2018-09-24 23:00 | NUR ---
PATIENT VOICED THAT HE DOES NOT FEEL MUCH NAUSEA AFTER MEDICATION. NO SIGNS OF DISTRESS, FAMILY MEMBER AT BEDSIDE.
[2018-09-25] VITALS (7 sets, daily range): BP systolic 129–134; BP diastolic 80–89
[2018-09-25] MEDS: DEXTROSE 5%/LACTATED RINGERS 1,000 ML IV SCH ×3 (01:50→16:16)
[2018-09-25] MEDS: HYDROMORPHONE HCL 2 MG TAB PO PRN ×4 (04:44→20:54)
--- NOTE | 2018-09-25 07:20 | NUR ---
PATIENT IS ALERT, AWAKE, AND IN STABLE CONDITION WITH NO S/S OF RESPIRATORY DISTRESS. PATIENT C/O LEFT SIDED ABD PAIN 08/24. IV FLUIDS INFUSING. CALL LIGHT IS WITHIN REACH, PATIENT INSTRUCTED TO CALL FOR ASSISTANCE NEEDED.
[2018-09-25] MEDS: MORPHINE SULFATE 30 MG TAB ER PO SCH ×2 (08:41→21:24)
[2018-09-25] MEDS: PREDNISONE 20 MG TAB PO SCH (08:42)
[2018-09-25] MEDS: BALSAM PERU/CASTOR OIL 60 GM OINT...G. TP SCH ×2 (08:42→21:24)
[2018-09-25] MEDS: FINASTERIDE 5 MG TAB PO SCH (08:42)
[2018-09-25] MEDS: POLYETHYLENE GLYCOL 3350 17 GM PACK PO SCH (08:45)
[2018-09-25] MEDS: CEFEPIME 1GM/NS 0.9% 50 ML 50 ML IV SCH ×2 (10:18→22:15)
[2018-09-25] MEDS: ONDANSETRON HCL INJ 2MG/ML 2ML 2 MG/ML VIAL IV PRN ×2 (12:13→16:24)
--- NOTE | 2018-09-25 19:17 | NUR ---
PATIENT IS AWAKE AND IN STABLE CONDITION WITH NO S/S OF RESPIRATORY DISTRESS. IV FLUIDS INFUSING. INCISION OPEN TO AIR. CALL LIGHT IS WITHIN REACH, PATIENT INSTRUCTED TO CALL FOR ASSISTANCE NEEDED. BEDSIDE REPORT GIVEN TO ONCOMING NURSE.
--- NOTE | 2018-09-25 20:03 | NUR ---
RECEIVED PT IN BED AOX3 C/O PAIN .RESPIRATIONS ARE EVEN AND UNLABORED 'STERLING AT THE ABD OPEN TO THE AIR.CALL LIGHT WITH IN REACH CONTINUE TO MONITOR
[2018-09-25] MEDS: TAMSULOSIN HCL 0.4 MG CAP PO SCH (21:24)
[2018-09-26] VITALS (9 sets, daily range): BP systolic 113–137; BP diastolic 74–84
[2018-09-26] MEDS: DEXTROSE 5%/LACTATED RINGERS 1,000 ML IV SCH ×3 (01:44→18:18)
[2018-09-26] MEDS: HYDROMORPHONE HCL 2 MG TAB PO PRN ×4 (01:44→23:37)
--- NOTE | 2018-09-26 07:25 | NUR ---
BEDSIDE REPORT GIVEN TO THE ONCOMING NURSE
--- NOTE | 2018-09-26 07:30 | NUR ---
PATIENT IS IN STABLE CONDITION WITH NO S/S OF RESPIRATORY DISTRESS. PATIENT C/O GENERALIZED PAIN. MID-ABD INCISION/THREE TROCAR SITES OPEN TO AIR WITH STERLING INTACT. IV FLUIDS INFUSING. CALL LIGHT IS WITHIN REACH, PATIENT INSTRUCTED TO CALL FOR ASSISTANCE NEEDED.
[2018-09-26] MEDS: PREDNISONE 20 MG TAB PO SCH (08:02)
[2018-09-26] MEDS: MORPHINE SULFATE 30 MG TAB ER PO SCH (08:02)
[2018-09-26] MEDS: FINASTERIDE 5 MG TAB PO SCH (08:02)
[2018-09-26] MEDS: POLYETHYLENE GLYCOL 3350 17 GM PACK PO SCH (08:04)
[2018-09-26] MEDS: BALSAM PERU/CASTOR OIL 60 GM OINT...G. TP SCH ×2 (09:25→20:16)
[2018-09-26] MEDS: CEFEPIME 1GM/NS 0.9% 50 ML 50 ML IV SCH ×2 (09:25→21:21)
[2018-09-26] MEDS: ONDANSETRON HCL INJ 2MG/ML 2ML 2 MG/ML VIAL IV PRN (14:02)
[2018-09-26] MEDS: PROMETHAZINE 12.5MG/ NACL 0.9% 50 ML IV PRN ×2 (15:30→21:35)
--- NOTE | 2018-09-26 19:21 | NUR ---
PATIENT IS IN STABLE CONDITION WITH NO S/S OF RESPIRATORY DISTRESS. NO PAIN VOICED IV FLUIDS INFUSING. CALL LIGHT IS WITHIN REACH, PATIENT INSTRUCTED TO CALL FOR ASSISTANCE NEEDED. BEDSIDE REPORT GIVEN TO ONCOMING NURSE.
[2018-09-26] MEDS: TAMSULOSIN HCL 0.4 MG CAP PO SCH (20:16)
[2018-09-26] MEDS ORDERED: PROMETHAZINE 25MG/ NS 50ML (IV) IV PRN (20:45)
[2018-09-27] VITALS (8 sets, daily range): BP systolic 126–148; BP diastolic 76–89
[2018-09-27] MEDS: PROMETHAZINE 12.5MG/ NACL 0.9% 50 ML IV PRN ×2 (03:30→21:19)
[2018-09-27] MEDS: HYDROMORPHONE HCL 2 MG TAB PO PRN ×3 (03:30→16:50)
[2018-09-27] MEDS: DEXTROSE 5%/LACTATED RINGERS 1,000 ML IV SCH ×3 (05:31→15:38)
[2018-09-27] MEDS: ONDANSETRON HCL INJ 2MG/ML 2ML 2 MG/ML VIAL IV PRN ×3 (06:46→22:17)
[2018-09-27 07:04] LABS: BASOPHILS % 0.4 % (0.0-1.0); EOSINOPHILS % 0.4 % (0.0-6.0); HEMATOCRIT 27.6 % (38.2-49.6); HEMOGLOBIN 8.7 g/dL (14.0-18.0); LYMPHOCYTES # (AUTO) 1.9 (1.0-3.2); LYMPHOCYTES % 22.4 % (18.0-39.1); MEAN CORPUSCULAR HEMOGLOBIN 26.9 pg (28-32); MEAN CORPUSCULAR HGB CONC 31.5 g/dL (31-35); MEAN CORPUSCULAR VOLUME 85.2 fL (81-99); MONOCYTES # (AUTO) 0.7 (0.2-0.8); MONOCYTES % 8.1 % (4.4-11.3); NEUTROPHILS # (AUTO) 5.7 (2.1-6.9); NEUTROPHILS % 66.5 % (38.7-80.0); PLATELET COUNT 323 x10e3/uL (140-360); RED BLOOD COUNT 3.24 x10e6/uL (4.3-5.7); RED CELL DISTRIBUTION WIDTH 15.6 % (11.7-14.4)
--- NOTE | 2018-09-27 07:20 | NUR ---
PATIENT IS AWAKE AND IN STABLE CONDITION WITH NO S/S OF RESPIRATORY DISTRESS. PATIENT RECENTLY RECEIVED PAIN MEDICATION- STATING CURRENT ABD PAIN 08/24. ABD INCISIONS OPEN TO AIR. CALL LIGHT IS WITHIN REACH, PATIENT INSTRUCTED TO CALL FOR ASSISTANCE NEEDED.
[2018-09-27 07:22] LABS: ANION GAP 15.3 mmol/L (8-16); BLOOD UREA NITROGEN 9 mg/dL (7-26); BUN/CREATININE RATIO 8 (6-25); CALCIUM 8.4 mg/dL (8.4-10.2); CARBON DIOXIDE 26 mmol/L (22-29); CHLORIDE 99 mmol/L (98-107); CREATININE, SERUM 1.19 mg/dL (0.72-1.25); EST GLOMERULAR FILTRATION RATE > 60 ML/MIN (60-); GLUCOSE 107 mg/dL (74-118); POTASSIUM 4.3 mmol/L (3.5-5.1); SODIUM 136 mmol/L (136-145)
[2018-09-27] MEDS: FINASTERIDE 5 MG TAB PO SCH (08:09)
[2018-09-27] MEDS: BALSAM PERU/CASTOR OIL 60 GM OINT...G. TP SCH ×2 (08:09→21:19)
[2018-09-27] MEDS: PREDNISONE 20 MG TAB PO SCH (08:09)
[2018-09-27] MEDS: POLYETHYLENE GLYCOL 3350 17 GM PACK PO SCH (08:12)
[2018-09-27] MEDS: CEFEPIME 1GM/NS 0.9% 50 ML 50 ML IV SCH ×2 (09:34→21:44)
--- NOTE | 2018-09-27 14:30 | NUR ---
Visit made by the Spiritual Care Department Pastoral Visitor, Lane Ohara. PV provided pastoral presence, prayer, communion, hospitality, and supportive listening. Pastoral Visitor informed pt/family of the scope of Field Sales Consultant Services and availability. MIR FARIAS Handle Lathe Operator Spiritual Care Department O: [phone] Pager: [phone] ([phone] number calling from)
--- NOTE | 2018-09-27 18:02 | NUR ---
PLACED CALL TO DR. MAGUIRE REGARDING PAIN MEDICATION RENEWAL FOR PO MORPHINE. RECEIVED CALLBACK FROM DR. LAVELL KUMAR TO RENEW PO MORPHINE.
--- NOTE | 2018-09-27 19:07 | NUR ---
PATIENT IS RESTING IN BED- IN STABLE CONDITION WITH NO S/S OF RESPIRATORY DISTRESS. IV FLUIDS INFUSING. CALL LIGHT IS WITHIN REACH, PATIENT INSTRUCTED TO CALL FOR ASSISTANCE NEEDED. BEDSIDE REPORT COMPLETED WITH ONCOMING NURSE.
[2018-09-27] MEDS: TAMSULOSIN HCL 0.4 MG CAP PO SCH (21:19)
[2018-09-27] MEDS: MORPHINE SULFATE 30 MG TAB ER PO SCH (21:19)
[2018-09-27] MEDS ORDERED: PANTOPRAZOLE SOD 40 MG TABEC PO ONE (22:15)
[2018-09-27] MEDS ORDERED: MAGNESIUM/ALUMINUM/SIMETHICONE 30 ML UDC PO PRN (22:15)
[2018-09-28] VITALS (8 sets, daily range): BP systolic 132–156; BP diastolic 81–90
[2018-09-28] MEDS ORDERED: SIMETHICONE 80 MG CHEW PO PRN (00:15)
[2018-09-28] MEDS: DEXTROSE 5%/LACTATED RINGERS 1,000 ML IV SCH ×2 (01:51→08:53)
[2018-09-28] MEDS: ONDANSETRON HCL INJ 2MG/ML 2ML 2 MG/ML VIAL IV PRN (06:16)
--- NOTE | 2018-09-28 07:30 | NUR ---
PT UP IN BED NO DISTRESS NOTED,C/O PAIN LEVEL 6 TO ABD.
[2018-09-28] MEDS: PANTOPRAZOLE SOD 40 MG TABEC PO SCH (08:53)
[2018-09-28] MEDS: POLYETHYLENE GLYCOL 3350 17 GM PACK PO SCH (08:53)
[2018-09-28] MEDS: FINASTERIDE 5 MG TAB PO SCH (08:54)
[2018-09-28] MEDS: MORPHINE SULFATE 30 MG TAB ER PO SCH ×2 (08:58→21:41)
[2018-09-28] MEDS: BALSAM PERU/CASTOR OIL 60 GM OINT...G. TP SCH ×2 (09:00→21:41)
[2018-09-28] MEDS: LORAZEPAM 0.5 MG TAB PO SCH ×2 (12:00→18:12)
--- NOTE | 2018-09-28 13:43 | NUR ---
PT'S PAIN NOT CONTROLLED LAST FRIDAY SO NOT DISCHARGED PAIN MEDS INCREASED OVER THE WEEKEND TODAY PT HAS NAUSEA AND HALLUCINATING INTERMITTENTLY LTAC ORDERED NO LTAC CRITERIA ONLY PAIN MED ADJUSTMENTS SNF EVAL ORDERED HOWEVER PT WALKING FROM ONE END OF THE HUA TO THE OTHER WITH STANDBY ASSIST CM CALLED AND SPOKE WITH DTR BRANDYN STRINGER [phone] FAMILY CONFERENCE ARRANGED FOR 8AM TOMORROW TO DISCUSS DC PLANS BRANDYN UNDERSTANDS PT HAS NO SNF OR LTAC CRITERIA SHE STATES SHE IS LOOKING AT PROVIDER SERVICES WITH VISITING ANGELS TO STAY WITH PT DURING THE DAY WHILE SHE IS AT WORK PER DR VIERA; PT IS RESISTANT TO HOSPICE/PALLIATIVE CARE SERVICES AT THIS TIME CM TO FOLLOW PLAN DC HOME AFTER FAMILY CONFERENCE IN AM
[2018-09-28] MEDS: PROMETHAZINE HCL 25 MG TAB PO PRN ×2 (14:30→21:47)
--- NOTE | 2018-09-28 15:05 | NUR ---
STERLING REMOVED ORDERED,INCISION SITE WITHOUT REDNESS OR DRAINAGE.
--- NOTE | 2018-09-28 15:45 | NUR ---
Nutrition Intervention Note RD Recommendation(s) for Physician: -Continue diet as ordered -Rec Ensure Enlive BID to increase protein-calorie intake Plan of Care: RD following, monitoring for tolerance and adequacy, ONS rec Nutrition reason for involvement: follow-up RD Assessment (09/28) Pt was discussed during AM rounds. Per HARDIK Bowling, pt continued to have nausea but no vomiting episode. Pt only ate some yogurts and fruits for lunch today. Placement pending. Visited pt in the room. Pt reported poor appetite and not wanting to eat. Normal BM. Pt still complained of some soreness from surgical site. RD rec Ensure and pt was willing to try. Communicated with kitchen staff to bring menu to pt and discuss menu options. Will continue to monitor and follow. (09/21) Chart reviewed. Labs and meds reviewed. 63yo M, who was admitted for abdominal pain with nausea and vomiting. Pt had gastrojejunostomy on 09/18. Visited pt in the room. Pt reported tolerating full liquid diet. Pt stated I am nauseated all day but no vomiting episode. + BM. Pt complains of hiccups and some sore throat, which are getting better. Ambulated with PT today. Currently on ADJUNCT SPANISH INSTRUCTOR pumps and Dilaudid. Will continue to monitor and follow. Principal Problems/Diagnoses: partial SBO PMH: carcinoma of the prostate with metastasis GI: abdomen soft, + BM Skin: surgical incision on abdomen Labs: (09/28/2018) WNL Meds: phenergan, protonix, dextrose/ lactated ringer, zofran Ht: 72in Wt: 230lb BMI: 31.2kg/m2 IBW: 178lb +/- 10% Malnutrition Evaluation (09/21/2018) The patient does not meet criteria for a specified degree of malnutrition at this time. Will re-evaluate at follow-up as appropriate. Nutrition Prescription (Diet Order): Regular diet Estimated Nutritional Needs: Calories: 1800- 2000kcal(18-20kcal/kg/d) Weight used: CBW Protein: 150 200g(1.5-2g/kg/d) Weight used: CBW Diet Adequacy: Not meeting calorie needs, Not meeting protein needs Diet Education Needs Assessment: Diet education not indicated; patient on regular diet. Nutrition Care Level: low Nutrition Diagnosis: Inadequate oral intake related to current medical status as evidenced by pt reported poor appetite with nausea and vomiting. Goal: Patient will meet 75-100% of estimated needs by follow up Progress: Not Progressing Interventions: General healthful diet, Commercial beverage Monitoring/Evaluation: Total energy intake, Total protein intake, Diet, Liquid supplement, Weight change Signed: Sanam Simpson MS, RD, LD
[2018-09-28] MEDS ORDERED: ONDANSETRON HCL 4 MG ORAL DISINTEGRATING TAB PO PRN (16:00)
[2018-09-28] MEDS: HYDROMORPHONE HCL 2 MG TAB PO PRN (16:02)
--- NOTE | 2018-09-28 17:30 | NUR ---
PT IN BED RESTING STILL HALUCINATING,PAIN LEVEL 4
--- NOTE | 2018-09-28 19:55 | NUR ---
RECEIVED PT IN BED AOX3 .C/O PAIN AND NAUSEA .FAMILY AT THE BEDSIDE CALL LIGHT WITH IN REACH
[2018-09-28] MEDS: TAMSULOSIN HCL 0.4 MG CAP PO SCH (21:41)
[2018-09-29] VITALS: BP 138/84
[2018-09-29 04:00] VITALS: BP 133/80
[2018-09-29] MEDS: LORAZEPAM 0.5 MG TAB PO SCH ×3 (06:00→12:00)
--- NOTE | 2018-09-29 06:38 | NUR ---
PT RESTING .PT WAS LETHARGIC IN THE BEGINNING OF THE SHIFT .NOW PT RESTING FAMILY AT THE BEDSIDE .CALL LIGHT WITH IN REACH CONTINUE TO MONITOR
[2018-09-29] MEDS: DEXTROSE 5%/LACTATED RINGERS 1,000 ML IV SCH ×2 (07:15→08:52)
[2018-09-29 07:51] VITALS: BP 121/75
[2018-09-29 08:00] VITALS: BP 121/65
[2018-09-29] MEDS: POLYETHYLENE GLYCOL 3350 17 GM PACK PO SCH (08:48)
[2018-09-29] MEDS: PANTOPRAZOLE SOD 40 MG TABEC PO SCH (08:48)
[2018-09-29] MEDS: FINASTERIDE 5 MG TAB PO SCH (08:49)
[2018-09-29] MEDS: MORPHINE SULFATE 30 MG TAB ER PO SCH (09:00)
[2018-09-29] MEDS: BALSAM PERU/CASTOR OIL 60 GM OINT...G. TP SCH (09:00)
[2018-09-29 11:46] VITALS: BP 123/77
--- NOTE | 2018-09-29 11:58 | NUR ---
SPOKE WITH FAMILY AND DOCTOR, DOCTOR SENDING PT HOME, SIGNED OOH DNR, GOT ALL SIGNATURES PLACED ON CHART GAVE COPIES TO FAMILY. PT IS SAT O2 AT 96 % DOCTOR WANTED HIM TO GT AT HOME, SIGNED CHOICE BUT DID NOT QUALIFY, GAVE INFORMATION ON HOW TO PURCHASE. GAVE OPTIONS OF PALLIATIVE/HOSPICE CARE PROVIDERS IF WANT FOR LATER USE, FAMILY CHOOSE [facility] SERVICES AND WILL TAKE PATIENT HOME WITH INSTRUCTIONS.
[2018-09-29] MEDS ORDERED: ATIVAN1 MG PO (14:15)
[2018-09-29] MEDS ORDERED: PROMETHAZINE HC25 M1 PO (14:17)
[2018-09-29] MEDS ORDERED: PHENERGAN25 MG/1 ML (14:17)
== END 2018-09-29 14:59 | disposition home or self-care (01) | DRG 327 ==
LOC: ER 00:01 → ERHOLD 05:13 → MED/SURG3 16:23
PROVIDERS: ADMIT Internal Medicine Medical Oncology; ATTEND Internal Medicine Medical Oncology
PROC: 0DJV4ZZ Inspection of Mesentery, Percutaneous Endoscopic Approach (ICD-10-PCS; 2018-09-18)
PROC: 0D160ZA Bypass Stomach to Jejunum, Open Approach (ICD-10-PCS; principal; 2018-09-18 14:00)
DX: C78.6 Secondary malignant neoplasm of retroperitoneum and peritoneum (principal); K56.7 Ileus, unspecified; C61 Malignant neoplasm of prostate; Z53.31 Laparoscopic surgical procedure converted to open procedure; Z88.5 Allergy status to narcotic agent; R11.0 Nausea; K59.00 Constipation, unspecified
CPT/HCPCS: 36415; 74018; 74177; 80048; 80053; 81001; 83690; 85025; 87086; 96361; 97139; 99285; J0690; J0692; J1100; J1170; J1885; J2001; J2250; J2270; J2405; J2550; J2765; J3010; J7030; J7512; Q0162; Q9967

== ENCOUNTER 2018-10-22 09:57 | Inpatient (IN) | payer OTHER ==
[~2018-10-22] VITALS: Ht 182.9 cm; Wt 92.5 kg
[~2018-10-22 09:57] MED LIST changes: +ATIVAN1 MG PO; +PHENERGAN25 MG/1 ML; +PROMETHAZINE HC25 M1 PO; +SENOKOT8.6 MG PO
[2018-10-22] MEDS ORDERED: SODIUM CHLORIDE 0.9% 1000ML 1,000 ML IV STA (10:55)
[2018-10-22] MEDS ORDERED: ONDANSETRON HCL INJ 2MG/ML 2ML 2 MG/ML VIAL IV NR (11:00)
[2018-10-22] MEDS ORDERED: HYDROMORPHONE 1MG/1ML INJ IV NR ×2 (11:15→11:30)
[2018-10-22 11:39] LABS: BASOPHILS % 0.3 % (0.0-1.0); EOSINOPHILS % 0.5 % (0.0-6.0); HEMATOCRIT 26.7 % (38.2-49.6); HEMOGLOBIN 8.2 g/dL (14.0-18.0); LYMPHOCYTES # (AUTO) 1.1 (1.0-3.2); LYMPHOCYTES % 16.9 % (18.0-39.1); MEAN CORPUSCULAR HEMOGLOBIN 25.2 pg (28-32); MEAN CORPUSCULAR HGB CONC 30.7 g/dL (31-35); MEAN CORPUSCULAR VOLUME 81.9 fL (81-99); MONOCYTES # (AUTO) 0.5 (0.2-0.8); MONOCYTES % 7.7 % (4.4-11.3); NEUTROPHILS # (AUTO) 4.7 (2.1-6.9); NEUTROPHILS % 71.2 % (38.7-80.0); PLATELET COUNT 234 x10e3/uL (140-360); RED BLOOD COUNT 3.26 x10e6/uL (4.3-5.7); RED CELL DISTRIBUTION WIDTH 17.7 % (11.7-14.4)
[2018-10-22 11:50] LABS: INR 1.1; PROTHROMBIN TIME 14.7 seconds (11.9-14.5)
[2018-10-22 11:55] LABS: ALANINE AMINOTRANSFERASE 26 IU/L (0-55); ALBUMIN 2.4 g/dL (3.5-5.0); ALBUMIN/GLOBULIN RATIO 0.6 (0.8-2.0); ALKALINE PHOSPHATASE 489 IU/L (40-150); ANION GAP 16.4 mmol/L (8-16); BLOOD UREA NITROGEN 12 mg/dL (7-26); BUN/CREATININE RATIO 10 (6-25); CALCIUM 8.1 mg/dL (8.4-10.2); CARBON DIOXIDE 21 mmol/L (22-29); CHLORIDE 100 mmol/L (98-107); CREATINE KINASE 321 IU/L (30-200); CREATININE, SERUM 1.21 mg/dL (0.72-1.25); EST GLOMERULAR FILTRATION RATE > 60 ML/MIN (60-); GLUCOSE 113 mg/dL (74-118); MAGNESIUM 1.7 MG/DL (1.3-2.1); POTASSIUM 4.4 mmol/L (3.5-5.1); SODIUM 133 mmol/L (136-145)
[2018-10-22 12:01] LABS: BILIRUBIN,URINE NEGATIVE (NEGATIVE); CLARITY,URINE CLEAR (CLEAR); COLOR,URINE YELLOW (YELLOW); KETONES,URINE TRACE (NEGATIVE); LEUKOCYTE ESTERASE ,URINE NEGATIVE (NEGATIVE); NITRITE,URINE NEGATIVE (NEGATIVE); PROTEIN,URINE DIPSTICK 1+ (NEGATIVE); URINE UROBILINOGEN 0.2 mg/dL (0.2 - 1)
--- NOTE | 2018-10-22 12:09 | Diagnostic Imaging Report ---
EXAMINATION: CHEST SINGLE (PORTABLE) INDICATION: Shortness breath COMPARISON: Chest radiograph of 08/31/2018 FINDINGS: LINES/TUBES:Unchanged left chest port terminating in the SVC. EKG leads overlie the chest. LUNGS:The lung volumes are low. Subsegmental atelectasis at the right lung base. No focal consolidation or pulmonary edema. PLEURA:No pleural effusion or pneumothorax. MEDIASTINUM:The cardiomediastinal silhouette appears unchanged in size and shape. BONES/SOFT TISSUES:No acute osseous injury. ABDOMEN:No free air under the diaphragm. IMPRESSION: Low lung volumes. Subsegmental atelectasis at the right lung base. No focal pneumonia or pulmonary edema. Signed by: Vero Nevarez MD on 10/22/2018 12:06 PM
[2018-10-22 12:23] LABS: BACTERIA,URINE FEW /HPF; EPITHELIAL CELLS,URINE RARE /LPF
[2018-10-22 12:24] LABS: RBC,URINE 0-5 /HPF (0-5)
[2018-10-22] MEDS: SODIUM CHLORIDE 0.9% 1000ML 1,000 ML IV SCH ×2 (12:24→20:55)
[2018-10-22] MEDS ORDERED: SODIUM CHLORIDE 0.9% 1000ML 1,000 ML ONE (12:30)
[2018-10-22 12:33] LABS: BAND NEUTROPHILS % (MANUAL) 1 %; LYMPHOCYTES % (MANUAL) 22 % (19-48); MONOCYTES % (MANUAL) 3 % (3.4-9.0); NEUTROPHILS % (MANUAL) 74 % (40-74)
[2018-10-22 12:34] LABS: ANISOCYTOSIS SLIGHT; PLATELET ESTIMATE ADEQUATE; PLATELET MORPHOLOGY COMMENT NORMAL; RBC MORPHOLOGY COMMENT NORMAL
--- NOTE | 2018-10-22 13:00 | NUR ---
recd pt from er via w/c aaox2,c/o pain level 7 chronic,medicated in er.iv infusing to rt ac 20 g.
--- NOTE | 2018-10-22 13:01 | NUR ---
Report to HARDIK Bowling
[2018-10-22 13:09] VITALS: BP 137/90
[2018-10-22 13:58] VITALS: BP 137/90
[2018-10-22] MEDS ORDERED: MORPHINE SULFATE 30 MG TAB ER PO SCH (14:00)
[2018-10-22] MEDS: HYDROMORPHONE 2MG/ML 2 MG/ML ML IV PRN ×3 (14:25→20:55)
[2018-10-22] MEDS: ONDANSETRON HCL INJ 2MG/ML 2ML 2 MG/ML VIAL IV PRN ×3 (14:25→20:55)
[2018-10-22 15:40] VITALS: BP 130/87
--- NOTE | 2018-10-22 16:30 | NUR ---
SPOKE WITH DR NASH RE; TEMP ORDERS WRITTEN
[2018-10-22] MEDS: CEFTRIAXONE SOD 1 GM/NS 50 ML 50 ML IV SCH (16:32)
[2018-10-22] MEDS: ACETAMINOPHEN 325 MG TAB PO PRN (16:32)
--- NOTE | 2018-10-22 17:55 | NUR ---
PT U IN BED C/O GENERALIZED PAIN LEVEL 6,IVF INFUSING
[2018-10-22] MEDS ORDERED: FUROSEMIDE INJ 10 MG/ML 2 ML VIAL IV ONE (18:30)
[2018-10-22] MEDS ORDERED: SODIUM CHLORIDE 0.9% 250ML 250 ML IV ONE (18:30)
[2018-10-22 20:00] VITALS: BP 124/86
[2018-10-22 20:55] VITALS: BP 124/86
[2018-10-22] MEDS: MORPHINE SULFATE 30 MG TAB ER PO SCH (21:40)
[2018-10-22] MEDS ORDERED: SODIUM CHLORIDE 0.9% 250ML 250 ML ONE (23:09)
--- NOTE | 2018-10-22 23:30 | NUR ---
PATIENT HAS STARTED BLOOD TRANSFUSION. NO SIGNS OF DISTRESS NOTED, NO COMPLAINTS OF PAIN, BED IS LOCKED AND IN LOWEST POSITION, CALL LIGHT WITHIN EASY REACH, WILL CONTINUE TO MONITOR.
[2018-10-23] VITALS (8 sets, daily range): BP systolic 116–142; BP diastolic 72–94
[2018-10-23] MEDS: ACETAMINOPHEN 325 MG TAB PO PRN (00:51)
[2018-10-23] MEDS: ONDANSETRON HCL INJ 2MG/ML 2ML 2 MG/ML VIAL IV PRN ×5 (02:44→20:08)
[2018-10-23] MEDS: HYDROMORPHONE 2MG/ML 2 MG/ML ML IV PRN ×7 (02:44→20:08)
[2018-10-23] MEDS: CEFTRIAXONE SOD 1 GM/NS 50 ML 50 ML IV SCH ×2 (04:17→15:44)
--- NOTE | 2018-10-23 04:45 | NUR ---
PATIENT HAS STARTED SECOND UNIT OF BLOOD. NO SIGNS OF DISTRESS NOTED, NO COMPLAINTS OF PAIN, ALL VITALS WITH NORMAL LIMITS, BED IS LOCKED AND IN LOWEST POSITION POSSIBLE, CALL LIGHT WITHIN EASY REACH, WILL CONTINUE TO MONITOR.
[2018-10-23] MEDS: MORPHINE SULFATE 30 MG TAB ER PO SCH ×3 (07:00→22:12)
--- NOTE | 2018-10-23 07:00 | NUR ---
RECEIVED AM REPORT FROM NURSE, MORNING ROUNDS DONE. PT IS ALERT RESTING IN BED. NO S/S OF DISTRESS. PT IS COMPLAINING OF NAUSEA. PT IS RECEIVING BLOOD TRANSFUSION WITH 26 MIN REMAINING. NO S/S OF A REACTION. IV SITE IS ASYMPTOMATIC. CALL LIGHT WITHIN REACH. INSTRUCTED TO CALL RN FOR HELP. WILL CONTINUE TO MONITOR PT
[2018-10-23 09:34] LABS: BLOOD UREA NITROGEN 11 mg/dL (7-26); BUN/CREATININE RATIO 11 (6-25); CALCIUM 7.4 mg/dL (8.4-10.2); CARBON DIOXIDE 21 mmol/L (22-29); CHLORIDE 100 mmol/L (98-107); CREATININE, SERUM 1.01 mg/dL (0.72-1.25); EST GLOMERULAR FILTRATION RATE > 60 ML/MIN (60-); GLUCOSE 104 mg/dL (74-118); SODIUM 134 mmol/L (136-145)
[2018-10-23] MEDS: SODIUM CHLORIDE 0.9% 1000ML 1,000 ML IV SCH ×3 (12:16→23:08)
--- NOTE | 2018-10-23 19:25 | NUR ---
PT IS RESTING IN BED. RESPIRATION IS EVEN AND UNLABORED, NO DISTRESS NOTED. BED IN THE LOWEST POSITION, LOCKED, AND CALL LIGHT WITHIN REACH. WILL CONTINUE TO MONITOR.
[2018-10-24] VITALS (8 sets, daily range): BP systolic 111–153; BP diastolic 81–99
[2018-10-24] MEDS: CEFTRIAXONE SOD 1 GM/NS 50 ML 50 ML IV SCH ×2 (04:14→16:40)
[2018-10-24] MEDS: MORPHINE SULFATE 30 MG TAB ER PO SCH ×3 (05:01→22:14)
[2018-10-24 06:25] LABS: BASOPHILS % 0.1 % (0.0-1.0); EOSINOPHILS % 0.1 % (0.0-6.0); HEMATOCRIT 27.9 % (38.2-49.6); HEMOGLOBIN 8.8 g/dL (14.0-18.0); LYMPHOCYTES # (AUTO) 1.9 (1.0-3.2); LYMPHOCYTES % 28.6 % (18.0-39.1); MEAN CORPUSCULAR HEMOGLOBIN 26.5 pg (28-32); MEAN CORPUSCULAR HGB CONC 31.5 g/dL (31-35); MONOCYTES # (AUTO) 0.5 (0.2-0.8); MONOCYTES % 7.2 % (4.4-11.3); NEUTROPHILS # (AUTO) 4.2 (2.1-6.9); NEUTROPHILS % 62.5 % (38.7-80.0); PLATELET COUNT 159 x10e3/uL (140-360); RED BLOOD COUNT 3.32 x10e6/uL (4.3-5.7); RED CELL DISTRIBUTION WIDTH 17.1 % (11.7-14.4)
--- NOTE | 2018-10-24 06:57 | NUR ---
Walking rounds done and report received. Patient is awake, alert and able to make needs known. Patient is requesting nausea medication prior to breakfast, will check EMAR. Tele #[phone], [email or web address]. POC discussed. Patient instructed to call for assistance as needed and verbalized understanding. Bed in lowest position, locked and call rivera within reach.
[2018-10-24 07:09] LABS: BAND NEUTROPHILS % (MANUAL) 2 %; LYMPHOCYTES % (MANUAL) 23 % (19-48); MONOCYTES % (MANUAL) 5 % (3.4-9.0); NEUTROPHILS % (MANUAL) 70 % (40-74); NUCLEATED RED BLOOD CELLS 1
[2018-10-24 07:10] LABS: PLATELET ESTIMATE ADEQUATE; PLATELET MORPHOLOGY COMMENT NORMAL; RBC MORPHOLOGY COMMENT NORMAL
[2018-10-24] MEDS: SODIUM CHLORIDE 0.9% 1000ML 1,000 ML IV SCH ×2 (07:15→12:16)
[2018-10-24] MEDS: ONDANSETRON HCL INJ 2MG/ML 2ML 2 MG/ML VIAL IV PRN ×2 (07:26→16:06)
[2018-10-24] MEDS ORDERED: MAGNESIUM/ALUMINUM/SIMETHICONE 30 ML UDC PO PRN (10:00)
[2018-10-24] MEDS: HYDROMORPHONE 2MG/ML 2 MG/ML ML IV PRN ×2 (15:52→20:33)
[2018-10-24] MEDS: PREDNISONE 20 MG TAB PO SCH (16:40)
[2018-10-24] MEDS ORDERED: PANTOPRAZOLE 40 MG 10ML VIAL IV NR (18:02)
--- NOTE | 2018-10-24 18:45 | NUR ---
Received bedside report from dayshift RN. The patient is sitting up on the side of the bed c/o of lower back pain and nausea. The patient requested to take a shower early evening and plan to give IV pain medication after the shower. Bed height low, call light within reach, wheels locked, and side rails up x2.
--- NOTE | 2018-10-24 19:00 | NUR ---
Walking rounds done. call rivera within reach.
[2018-10-24] MEDS: PROMETHAZINE 25MG/ NS 50ML (IV) IV PRN (20:38)
[2018-10-24] MEDS: ONDANSETRON HCL INJ 2MG/ML 2ML 2 MG/ML VIAL IV SCH (23:20)
[2018-10-25] VITALS (8 sets, daily range): BP systolic 128–164; BP diastolic 95–103
[2018-10-25] MEDS: SODIUM CHLORIDE 0.9% 1000ML 1,000 ML IV SCH ×4 (00:13→15:35)
[2018-10-25] MEDS: HYDROMORPHONE 2MG/ML 2 MG/ML ML IV PRN ×3 (00:14→23:42)
--- NOTE | 2018-10-25 02:36 | NUR ---
The patient requested assistance to the restroom and also asked for the PRN IV pain medication. After the patient return to the bed, the patient stated he felt "over medicated" and would like to wait on taking the pain IV pain medication. RN told the patient will hold pain medication for another 30 minutes or will waste if not needed. The patient verbalized understanding.
[2018-10-25] MEDS: CEFTRIAXONE SOD 1 GM/NS 50 ML 50 ML IV SCH ×2 (03:58→16:33)
[2018-10-25] MEDS: MORPHINE SULFATE 30 MG TAB ER PO SCH ×3 (06:14→22:08)
[2018-10-25] MEDS: ONDANSETRON HCL INJ 2MG/ML 2ML 2 MG/ML VIAL IV SCH ×4 (06:14→23:09)
--- NOTE | 2018-10-25 06:47 | NUR ---
Walking rounds and report received. Patient is resting in bed without any complaints voiced. He appears comfortable. Bed in lowest position, locked, bed alarm on and call rivera within reach.
[2018-10-25] MEDS: PREDNISONE 20 MG TAB PO SCH (08:25)
[2018-10-25] MEDS: PANTOPRAZOLE 40 MG 10ML VIAL IV SCH (08:25)
--- NOTE | 2018-10-25 14:20 | NUR ---
Visit made by the Spiritual Care Department Pastoral Visitor, Lane Ohara. PV provided pastoral presence, hospitality, and supportive listening. Pt/family requested anointing by . Pastoral Visitor informed pt/family of the scope of Sheet Combining Operator Services and availability. MIR FARIAS [facility] Spiritual Care Department O: [phone] Pager: [phone] ([phone] number calling from)
[2018-10-25] MEDS: PROMETHAZINE 25MG/ NS 50ML (IV) IV PRN (16:33)
--- NOTE | 2018-10-25 18:45 | NUR ---
Received bedside report from day shift RN. The patient is laying on the bed, not in distress. Bed height low, call light within reach, wheels locked, and side rails up x2.
[2018-10-26] VITALS (8 sets, daily range): BP systolic 136–176; BP diastolic 90–101
[2018-10-26] MEDS: SODIUM CHLORIDE 0.9% 1000ML 1,000 ML IV SCH ×2 (00:10→12:16)
[2018-10-26] MEDS: CEFTRIAXONE SOD 1 GM/NS 50 ML 50 ML IV SCH ×2 (04:03→16:23)
[2018-10-26] MEDS: HYDROMORPHONE 2MG/ML 2 MG/ML ML IV PRN ×6 (04:04→19:45)
[2018-10-26] MEDS: ONDANSETRON HCL INJ 2MG/ML 2ML 2 MG/ML VIAL IV SCH ×3 (05:37→18:08)
[2018-10-26] MEDS: MORPHINE SULFATE 30 MG TAB ER PO SCH ×3 (06:04→22:10)
--- NOTE | 2018-10-26 07:30 | NUR ---
PT UP IN BED AWAKE,C/O PAIN CHRONIC LEVEL 6.
[2018-10-26] MEDS: PREDNISONE 20 MG TAB PO SCH (08:11)
[2018-10-26] MEDS: PANTOPRAZOLE 40 MG 10ML VIAL IV SCH (08:11)
--- NOTE | 2018-10-26 10:10 | NUR ---
ASSESSMENT: Spiritual concern Pt preparing for . Pt states, "It's the final countdown" without sign of emotion. Pt confirmed he requested anointing of the sick by his [place] tube cleaner. Pt identifies as [place] and attends [employer] in [place]. Pt's friend at bedside. Intervention: Provided hospitality and empathic listening. Provided information about availability of mountain services manager. Outcome: Pt expressed appreciation for visit. I will follow as able. MIR FARIAS Concrete Stone Fabricator Spiritual Care Department O: [phone] Pager: [phone] ([phone] number calling from)
--- NOTE | 2018-10-26 12:00 | NUR ---
STSATES PAIN LEVEL 7-8 MEDICATED,
--- NOTE | 2018-10-26 17:45 | NUR ---
PAGED DR NASH RE;HTN
--- NOTE | 2018-10-26 18:11 | NUR ---
PT IN BED RESTING,NO S/S DISCOMFORT,MEDICATED EARLIER FOR PAIN.FAMILY AT BEDSIDE.
--- NOTE | 2018-10-26 19:00 | NUR ---
BS rounds completed with morning nurse and Dr. Begum. Dr spoke with Pt and family member about plan of treatment. New orders decrease NS to 25ml/hr, restart home BP med, and Miralax. Pt/Family verbalized understanding with plan of care. Call rivera within reach. Will continue to monitor.
[2018-10-27] VITALS: BP 157/93
[2018-10-27] MEDS: HYDROMORPHONE 2MG/ML 2 MG/ML ML IV PRN ×4 (01:45→09:55)
[2018-10-27 04:00] VITALS: BP 168/92
[2018-10-27] MEDS: CEFTRIAXONE SOD 1 GM/NS 50 ML 50 ML IV SCH (04:15)
[2018-10-27] MEDS: MORPHINE SULFATE 30 MG TAB ER PO SCH (06:00)
[2018-10-27] MEDS: ONDANSETRON HCL INJ 2MG/ML 2ML 2 MG/ML VIAL IV SCH ×2 (06:00)
[2018-10-27 08:00] VITALS: BP 145/95
--- NOTE | 2018-10-27 08:00 | NUR ---
pt up in bed ,awake pain level 7 medicated.
[2018-10-27] MEDS: PANTOPRAZOLE 40 MG 10ML VIAL IV SCH (08:14)
[2018-10-27] MEDS: PREDNISONE 20 MG TAB PO SCH (08:14)
[2018-10-27 08:20] VITALS: BP 145/95
--- NOTE | 2018-10-27 08:30 | NUR ---
dr allison here dcd pt home
[2018-10-27] MEDS ORDERED: POLYETHYLENE GLYCOL 3350 17 GM PACK PO SCH (09:00)
[2018-10-27] MEDS ORDERED: LOSARTAN POTASSIUM 25 MG TAB PO SCH (09:00)
--- NOTE | 2018-10-27 10:06 | NUR ---
PT DISCHARGED HOME IV DCD WITHOUT REDNES OR SWELLING,TRANSPORTED TO AUTO VIA W/C,PT TO GO TO DR MARTIN OFFICE FOR PRESCRIPTIONS
--- NOTE | 2018-10-27 17:56 | Discharge Summary ---
HOSPITAL COURSE: Thomas Goodson is a 63-year-old male, who presented with excruciating pain. For detailed history and physical, please review my dictation dated, 10/22. On admission, hemoglobin was 8.2. The patient subsequently was given MS Contin 60 mg p.o. q.8 hours. Dilaudid was given 2 mg IV q.2 hours. The patient had some pain control. Subsequently again, hospice was discussed, which he and the family denied. The patient's pain is reasonably controlled today. I have increased the morphine to 100 mg twice a day. I will write a prescription, subsequently being discharged at the present time. DISCHARGE MEDICATIONS: 1. MS Contin 100 mg twice a day. 2. Ativan 1 mg p.o. q.4 hours p.r.n. for anxiety. 3. MiraLAX 17 g daily p.r.n. for constipation. 4. Dilaudid 4 mg p.o. q.2 hours p.r.n. I have given them a prescription of 120 tablets. Prognosis remains extremely poor. The patient is advised to see me back in the office in a month, however, still to consider hospice. MD KENZIE Shah/NABILA /[id number]
--- NOTE | 2018-10-28 03:18 | History and Physical ---
HISTORY OF PRESENT ILLNESS: Thomas Goodosn is a 63-year-old white male, who presents to the ER with history of excruciating pain in the hips, spine. HISTORY OF PAST ILLNESS: History of cancer of the prostate with massive intraabdominal metastases, massive bone metastases. Multiple discussions were carried out and the patient opted all the treatment for possibility of hospice, however, both the patient and the daughter has refused hospice. SOCIAL HISTORY: Noncontributory. FAMILY HISTORY: Noncontributory. ALLERGIES: REPORTED NONE. MEDICATIONS: At this time: 1. Ceftriaxone. 2. Sodium chloride. 3. Morphine. 4. Ondansetron. 5. Hydromorphone. REVIEW OF SYSTEMS: HEENT: Normal. CARDIAC: Normal. RESPIRATORY: Normal. GI: Massive intraabdominal metastases. : Cancer of the prostate with massive metastases to the bone. MUSCULOSKELETAL: Massive bone metastases. NEUROENDOCRINE: Essentially normal. PHYSICAL EXAMINATION: GENERAL: Remarkable built male, anemic. NECK: No palpable adenopathy. HEART: Within normal limits. LUNGS: Clear. ABDOMEN: Obese. Midline scar of surgery is seen. RECTAL: Deferred. CENTRAL NERVOUS SYSTEM: Essentially normal. EXTREMITIES: Essentially normal. LABORATORY DATA: Shows a hemoglobin of 8.2. IMPRESSION: 1. Anemia of chronic disease. 2. Stage D2 cancer of the prostate. 3. Pain, uncontrolled. PLAN: Plan is to give him blood transfusion if needed and analgesics. I will continue to support him. Hospice will be discussed, which was discussed on day #1, however, he has refused this again. MD KENZIE Shah/NABILA /[id number]
== END 2018-10-27 10:06 | disposition home or self-care (01) | DRG 948 ==
LOC: ER 09:57 → ERHOLD 12:16 → MED/SURG3 13:06 → OBSVTOIN 10-23 17:24
PROVIDERS: ADMIT Internal Medicine Medical Oncology; ATTEND Internal Medicine Medical Oncology
PROC: 30233N1 Transfusion of Nonautologous Red Blood Cells into Peripheral Vein, Percutaneous Approach (ICD-10-PCS; principal; 2018-10-22)
DX: G89.3 Neoplasm related pain (acute) (chronic) (principal); C79.51 Secondary malignant neoplasm of bone; C79.89 Secondary malignant neoplasm of other specified sites; C61 Malignant neoplasm of prostate; D63.8 Anemia in other chronic diseases classified elsewhere; R63.0 Anorexia; Z68.27 Body mass index [BMI] 27.0-27.9, adult
CPT/HCPCS: 36415; 71045; 80048; 80053; 81001; 82550; 82553; 83735; 84484; 85025; 85610; 85730; 86850; 86900; 86920; 87040; 87086; 93005; 96361; 99284; G0378; J0696; J1170; J1940; J2405; J2550; J7030; J7050; J7512; P9016